=== PATIENT | male | born 1955 | race Caucasian/White ===

== ENCOUNTER 2020-05-09 02:20 | Outpatient (CLI) | payer MEDICARE, SELFPAY ==
[2020-05-09 19:47] LABS: SARS-CoV-2 RNA PCR Negative
== END 2020-05-09 02:21 | disposition home or self-care (01) ==
LOC: ANHCOVIDDT 02:22
PROVIDERS: PCP Family Medicine; Visit Provider Internal Medicine Gastroenterology
DX: Z01.818 Encounter for other preprocedural examination (principal); Z20.828 Contact with and (suspected) exposure to other viral communicable diseases
CPT/HCPCS: 87635; C9803; U0003

== ENCOUNTER 2020-05-12 04:47 | Day surgery (SDC) | payer MEDICARE, SELFPAY ==
[2020-05-08 14:28] VITALS: BMI 23.8
[2020-05-12 10:14] VITALS: BP 120/98; PULSE 97; RESP 16; O2SAT 100
[2020-05-12] MEDS: LACTATED RINGERS 1,000 ML 150 ML IV CONT (10:23)
--- NOTE | 2020-05-12 10:31 | WPDANESEPPF ---
Anes - Initial Pre Proc Eval Procedure: Operation Date: 05/12/20 11:15 Proposed Procedures p Esophagogastroduodenoscopy & Colonoscopy - Abad Porras MD Date/Time: 05/12/20 10:31 Surgeon: Abad Porras MD Pre Op Diagnosis: Abdominal Pain/ Weight Loss Patient Data Age: 64 Gender: M Height: 6 ft 2 in Weight: 74.2 kg Last Vital Signs Pulse 97 05/12/20 10:14 Resp 16 05/12/20 10:14 BP 120/98 H 05/12/20 10:14 Pulse Ox 100 05/12/20 10:14 Allergies Allergy/AdvReac Type Severity Reaction Status Date / Time Penicillins Allergy Unknown face Verified 05/12/20 10:10 breaks out Home Medications Medication Instructions Recorded Confirmed Type zolpidem 10 mg tablet 10 mg PO HS 02/07/20 05/08/20 History tramadol 50 mg tablet 50 mg PO BID PRN #60 tablet 02/22/20 05/08/20 Rx rosuvastatin 20 mg tablet 20 mg PO DAILY #90 tablet 03/13/20 05/08/20 Rx omeprazole 20 mg capsule,delayed 20 mg PO DAILY #30 cap 04/05/20 05/08/20 Rx release mirtazapine 15 mg tablet 15 mg PO DAILY #30 tablet 04/27/20 05/08/20 Rx budesonide-formoterol HFA 160 2 puff INHALATION Q12H #10.2 g 05/05/20 05/08/20 Rx mcg-4.5 mcg/actuation aerosol inhaler mirtazapine 7.5 mg PO DAILY 05/08/20 05/08/20 History sodium,potassium,mag sulfates 17.5 354 ml PO .COMPLEX #354 ml 05/08/20 05/08/20 Rx gram-3.13 gram-1.6 gram oral soln Patient hx anesthesia problems: none Family hx anesthesia problems: none PMFSH Past Medical History Medical History Arthritis COPD (chronic obstructive pulmonary disease) Dyspepsia Migraines Tobacco abuse Surgical History Surgical History H/O hemorrhoidectomy History of appendectomy Family History Family History Mother Diabetes mellitus Father Mesothelioma Sibling Liver disease Social History Social History Smoking packs per day: 1 Smoking cigarettes per day: 20.0 Years smoked: 50 Smoking pack-years: 50.00 Smoking status: Current every day smoker Tobacco type: cigarettes Alcohol intake: never Substance use: never Substance use type: does not use Living arrangements: with family Spiritual care concerns: No Anes - Eval Final PreProcedure Day of Procedure 05/12/20 10:31 Patient weight: normal Heart: regular rate and rhythm Lungs: decreased breath sounds Airway: Mallampati scale class II Neurological: alert and oriented Last oral intake: >/= 8 hours ASA classification: III Emergent: no Anesthesia type and monitoring: general GIVS and standard monitoring Informed Consent: The patient's anesthetic plan and its attendant risks and benefits were discussed with the patient/family/POA. Questions were solicited and answers provided to the satisfaction of the patient/family/POA.
--- NOTE | 2020-05-12 10:48 | PM.HPGS ---
History of Present Illness History of Present Illness Consent: Risks, benefits, and alternatives have been discussed and questions answered. Patient agrees to proceed with procedure. Chief complaint: Abdominal Pain/ Weight Loss Narrative: Pierre Alvarez is a 64 year old male with weight loss, upper abdominal pain, colonoscopy about 4 years ago. Also smoker, insurance did not approved CT scan that was ordered. Review of Systems Constitutional: Constitutional: Denies headache(s) and Denies weakness Eyes: Eyes: Denies blurry vision ENT: Reports Normal hearing present, Denies headache(s) and Denies neck pain Cardiovascular: Cardiovascular: Denies chest pain and Denies dyspnea Respiratory: Respiratory: Denies dyspnea Gastrointestinal: Gastrointestinal: Reports no additional gastrointestinal complaints Genitourinary: Genitourinary: Denies dysuria Musculoskeletal: Musculoskeletal: Denies neck pain Integumentary/Breasts: Skin/Breast: Denies dry skin Neurologic: Reports Normal hearing present, Denies headache(s) and Denies weakness Psychiatric: Psychiatric: Denies anxiety Endocrine: Endocrine: Denies change in body appearance Hematologic/Lymphatic: Hematologic/Lymphatic: Denies easy bleeding Allergic/Immunologic: Allergic/Immunologic: Denies urticaria PMFSH Past Medical History Medical History Arthritis COPD (chronic obstructive pulmonary disease) Dyspepsia Migraines Tobacco abuse Surgical History Surgical History H/O hemorrhoidectomy History of appendectomy Family History Family History Mother Diabetes mellitus Father Mesothelioma Sibling Liver disease Social History Social History Smoking packs per day: 1 Smoking cigarettes per day: 20.0 Years smoked: 50 Smoking pack-years: 50.00 Smoking status: Current every day smoker Tobacco type: cigarettes Alcohol intake: never Substance use: never Substance use type: does not use Living arrangements: with family Spiritual care concerns: No Meds Home Medications and Allergies Home Medications Medication Instructions Recorded Confirmed Type zolpidem 10 mg tablet 10 mg PO HS 02/07/20 05/08/20 History tramadol 50 mg tablet 50 mg PO BID PRN #60 tablet 02/22/20 05/08/20 Rx rosuvastatin 20 mg tablet 20 mg PO DAILY #90 tablet 03/13/20 05/08/20 Rx omeprazole 20 mg capsule,delayed 20 mg PO DAILY #30 cap 04/05/20 05/08/20 Rx release mirtazapine 15 mg tablet 15 mg PO DAILY #30 tablet 04/27/20 05/08/20 Rx budesonide-formoterol HFA 160 2 puff INHALATION Q12H #10.2 g 05/05/20 05/08/20 Rx mcg-4.5 mcg/actuation aerosol inhaler mirtazapine 7.5 mg PO DAILY 05/08/20 05/08/20 History sodium,potassium,mag sulfates 17.5 354 ml PO .COMPLEX #354 ml 05/08/20 05/08/20 Rx gram-3.13 gram-1.6 gram oral soln Allergies Allergy/AdvReac Type Severity Reaction Status Date / Time Penicillins Allergy Unknown face Verified 05/12/20 10:10 breaks out Vital Signs Vital Signs - 24 hr 05/12/20 10:14 Pulse Rate 97 Respiratory Rate 16 Blood Pressure 120/98 H Pulse Oximetry 100 Exam Const: General: comfortable and no acute distress HENMT: General nose exam: Normal nares present Eyes: General: appearance normal, both eyes and all related structures Neck: Neck: no JVD Resp: Auscultation: clear to auscultation bilaterally Cardio: Rate: regular rate Rhythm: regular rhythm GI: Inspection: non-distended GI Palp: Yes Soft to palpation Skin: General skin exam: normal color Neuro: General: gait normal Speech: normal speech Extrem: General: normal to inspection Psych: Mental Status: mental status grossly normal Assessment and Plan Assessment and plan (1) Weight loss: Code(s): R
[2020-05-12 11:35] VITALS: BP 89/54; PULSE 84; RESP 32; O2SAT 95
[2020-05-12 11:45] VITALS: BP 100/70; PULSE 74; RESP 21; O2SAT 98
== END 2020-05-12 12:11 | disposition home or self-care (01) ==
PROVIDERS: PCP Family Medicine; Visit Provider Internal Medicine Gastroenterology
PROC: 0DJ08ZZ Inspection of Upper Intestinal Tract, Via Natural or Artificial Opening Endoscopic (ICD-10-PCS; CPT 43235; principal; 2020-05-12 11:15)
DX: Z12.11 Encounter for screening for malignant neoplasm of colon (principal); D12.0 Benign neoplasm of cecum; D12.2 Benign neoplasm of ascending colon; D12.3 Benign neoplasm of transverse colon; K57.30 Diverticulosis of large intestine without perforation or abscess without bleeding; K64.8 Other hemorrhoids; K29.50 Unspecified chronic gastritis without bleeding; K21.00 Gastro-esophageal reflux disease with esophagitis, without bleeding; K44.9 Diaphragmatic hernia without obstruction or gangrene; K22.2 Esophageal obstruction; K26.9 Duodenal ulcer, unspecified as acute or chronic, without hemorrhage or perforation; J44.9 Chronic obstructive pulmonary disease, unspecified; F17.210 Nicotine dependence, cigarettes, uncomplicated
CPT/HCPCS: 45385; 43239; 87081; 88305; C9803; J2704; J7120; U0003

== ENCOUNTER 2020-08-20 13:25 | Emergency (ER) | payer MEDICARE, SELFPAY ==
[2020-08-20 13:40] VITALS: BP 150/62; PULSE 89; RESP 20; TEMP 36.6; O2SAT 98
[2020-08-20 13:59] LABS: Basophils Percent Auto 0.5 % (0.2-1.2); Eosinophils Absolute Auto 0.1 K/mm3 (0-0.3); Eosinophils Percent Auto 0.8 % (0-4.4); Hematocrit 44.8 % (42.0-52.0); Hemoglobin 15.1 g/dL (14.0-18.0); Immature Granulocyte Absolute 0.03 K/mm3 (0.00-0.031); Immature Granulocyte Percent A 0.4 % (0-0.5); Lymphocytes Absolute Auto 2.69 K/mm3 (0.9-3.2); Lymphocytes Percent Auto 31.8 % (18.3-44.2); Mean Corpuscular HGB Conc 33.7 g/dl (32-36); Mean Corpuscular Hemoglobin 30.6 pg (26-34); Mean Corpuscular Volume 90.7 fl (80-100); Mean Platelet Volume 9.7 fl (7.4-10.4); Monocytes Absolute Auto 0.7 K/mm3 (0.1-0.6); Monocytes Percent Auto 8.4 % (2.6-8.5); Neutrophils Absolute Auto 4.9 K/mm3 (1.3-6.7); Neutrophils Percent Auto 58.1 % (45.5-73.1); Platelet Count Result 338 k/mm3 (150-375); Red Blood Count 4.94 M/mm3 (4.6-6.20); Red Cell Distribution Width 13.7 % (11.5-14.5); White Blood Count 8.5 K/mm3 (4.5-10.0)
[2020-08-20 14:07] LABS: Add Urine Microscopic? YES; Appearance Urine Clear (Clear); Bilirubin Urine Negative (Negative); Blood Urine Negative (Negative); Color Urine Yellow (Yellow); Glucose Urine UA Negative (Negative); Ketones Urine Trace mg/dL (Negative); Leukocyte Esterase Ur Trace LEU/UL (Negative); Mucus Urine Few /lpf; Nitrate Urine Negative (Negative); Protein Urine 1+ mg/dL (Negative); Specific Grav Ur 1.029 (1.001-1.035)
[2020-08-20 14:17] LABS: Alanine Aminotransferase 12 U/L (4-50); Albumin Level 4.4 g/dL (3.5-5.1); Alkaline Phosphatase 74 U/L (38-126); Anion Gap 9 mmol/L (8-16); Aspartate Amino Transferase 20 U/L (17-59); Bilirubin,Total 0.5 mg/dL (0.2-1.3); Blood Urea Nitrogen 13 mg/dL (9-20); Calcium 9.4 mg/dL (8.4-10.2); Carbon Dioxide 27 mmol/L (22-30); Chloride 104 mmol/L (98-107); Estimated CRCL calculation 68 ml/min; Estimated Glomerular Filt Rate > 60; Glucose 99 mg/dL (75-110); Lipase 34 U/L (23-300); Potassium 4.1 mmol/L (3.4-5.0); Sodium 140 mmol/L (137-145)
--- NOTE | 2020-08-20 14:35 | ED.ABDPAIN ---
HPI - Abdominal Pain General Chief Complaint: Abdominal Pain Stated Complaint: abd pain Time Seen by Provider: 08/20/20 14:21 History of Present Illness HPI narrative: Constant epigastric pain for 7 months. Had upper endoscopy and dilation 3 months ago, which he believes made the pain worse. He has been on esomeprazole for years and feels that this may be making the pain worse. He reports 50 pound weight loss due to pain with eating. No nausea, vomiting, diarrhea, fever. Related Data Allergies Allergy/AdvReac Type Severity Reaction Status Date / Time Penicillins Allergy Unknown face Verified 08/20/20 13:42 breaks out Review of Systems Review of Systems: All systems reviewed & are unremarkable except as noted in HPI and below Constitutional: Constitutional: Denies chills and Denies fever(s) Eyes: Eyes: Reports no additional eye complaints ENT: Reports system reviewed and no additional complaints, except as documented Cardiovascular: Cardiovascular: Denies chest pain Respiratory: Respiratory: Reports dyspnea Gastrointestinal: Gastrointestinal: Reports abdominal pain, Denies constipation, Denies diarrhea, Denies nausea and Denies vomiting Genitourinary: Genitourinary: Denies hematuria and Denies dysuria Musculoskeletal: Musculoskeletal: Denies back pain Neurologic: Denies numbness and Denies weakness PMFSH Past Medical History Medical History Arthritis COPD (chronic obstructive pulmonary disease) Dyspepsia Migraines Tobacco abuse Surgical History Surgical History H/O hemorrhoidectomy History of appendectomy Family History Family History Mother Diabetes mellitus Father Mesothelioma Sibling Liver disease Social History Social History Smoking packs per day: 1 Smoking cigarettes per day: 20.0 Years smoked: 50 Smoking pack-years: 50.00 Smoking status: Current every day smoker Tobacco type: cigarettes Alcohol intake: never Substance use: never Substance use type: does not use Spiritual care concerns: No Exam Const: General: no acute distress and alert Nutritional Appearance: thin Orientation/consciousness: patient oriented x3 HENMT: Head: normal to inspection Neck: Neck: normal visual inspection Chest: Chest palpation & inspection: normal inspection of the chest and no tenderness Resp: Effort & Inspection: normal respiratory effort Auscultation: clear to auscultation bilaterally Cardio: Rate: regular rate Rhythm: regular rhythm GI: Inspection: non-distended GI Palp: Yes Soft to palpation, Yes Tenderness to palpation present (GI) (epigastric), No Guarding due to palpation present (GI) and No Rebound tenderness present Skin: General skin exam: normal color Neuro: General: patient oriented x3, moves all extremities, no focal motor deficits and CN's II-XI intact bilaterally Speech: normal speech Gait exam (Neuro): Normal gait present Extrem: General: normal to inspection Course Vital Signs Vital signs: Vital Signs Temperature 36.6 C 08/20/20 13:40 Pulse Rate 89 08/20/20 13:40 Respiratory Rate 20 08/20/20 13:40 Blood Pressure 150/62 H 08/20/20 13:40 Pulse Oximetry 98 08/20/20 13:40 Temperature 36.6 C 08/20/20 13:40 Pulse Rate 89 08/20/20 13:40 Respiratory Rate 20 08/20/20 13:40 Blood Pressure 150/62 H 08/20/20 13:40 Pulse Oximetry 98 08/20/20 13:40 MDM - Abdominal Pain MDM Narrative Medical decision making narrative: Improved instantly with lidocaine. I will provide a short prescription until he can follow-up with [facility]. Case discussed with Dr. Barragan. I will change his PPI and start carafate. Differential Diagnosis Differential diagnosis: Likely other (PUD, GERD, hiatal hernia) Medic
[2020-08-20] MEDS: BELLADONNA ALK/PHENOB ELIX 10 ML, MAG HYDROX/ALUMINUM HYD/SIMETH 30 ML, LIDOCAINE HCL 2... PO (14:41)
[2020-08-20] MEDS: SUCRALFATE SUSP 100 MG/ML 10 ML UDC 1000 MG PO (15:10)
== END 2020-08-20 15:18 | disposition home or self-care (01) ==
PROVIDERS: Emergency Provider Emergency Medicine; PCP Family Medicine
DX: R10.13 Epigastric pain (principal); G89.29 Other chronic pain; M19.90 Unspecified osteoarthritis, unspecified site; J44.9 Chronic obstructive pulmonary disease, unspecified; F17.210 Nicotine dependence, cigarettes, uncomplicated
CPT/HCPCS: 36415; 80053; 81001; 83690; 85025; 87086; 87088; 99283; A9270

== ENCOUNTER 2020-08-24 10:01 | Emergency (ER) | payer MEDICARE, SELFPAY ==
--- NOTE | ~2020-08-24 | XR_ITS ---
EXAMINATION: XR UGI w esoph water soluble EXAM DATE: 08/24/2020 13:27 INDICATION: Epigastric pain for 3 months. TECHNIQUE: Limited water-soluble esophagram with upper GI examination performed in standing position according to patient's ability/desire. Dose reduction digital pulsed fluoroscopy was used at 4 frame s per second with DAP 1.4 Gycm2. Correlation is made to CT abdomen pelvis earlier same date. FINDINGS: There is mild presbyesophagus without esophageal stricture or diverticulum. No aspiration was demonstrated during the examination. The stomach had a normal rugal fold pattern as to the duoden al bulb and sweep, no focal ulceration was identified. There was moderate amount of reflux and straig ht during the examination even in the standing position. IMPRESSION: 1. Moderate gastroesophageal reflux. 2. Mild presbyesophagus. Reviewed, dictated and finalized at location A. ERCIAL REAL ESTATE MANAGER
--- NOTE | ~2020-08-24 | CT_ITS ---
EXAMINATION: CT abdomen pelvis w con DATE: 08/24/2020 11:37 INDICATION: Duodenal ulcer TECHNIQUE: Computed tomography (CT) of the abdomen and pelvis was performed with 100 mL Omnipaque-350 intravenous contrast. Automated exposure control and iterative reconstruction technique were employe d. The dose-length product was 318.45 mGy-cm. COMPARISON: None FINDINGS: 8 mm calcified pleural based nodule in the left lower lobe consistent with old granulomatous disease. Couple additional 4 mm noncalcified pleural-based nodules in the left lower and right middle lobes. Mild bronchiectasis in the bilateral lower lobes. Also in the bilateral lower lung zones are fine per ipheral reticular opacities which could represent nonspecific chronic interstitial lung disease, atel ectasis or less likely mild pulmonary edema. Heart size is normal. No pericardial or pleural effusion . Liver, gallbladder, pancreas, spleen and bilateral adrenal glands are normal. Small bilateral renal c ysts measuring up to 10 mm. Small bowel including the visualized duodenum is unremarkable. Moderate a mount of stool scattered throughout the colon. No bowel obstruction. The appendix is not visualized. No pericecal inflammatory change to suggest acute appendicitis. Diffuse mild bladder wall thickening which could be due to incomplete distention and/or chronic outlet obstruction from the enlarged prost ate. No free intraperitoneal gas or fluid. No pathologically enlarged abdominal or pelvic lymphadenop athy. There is calcified atherosclerosis of the aorta and many of the other arteries. Mild scattered degenerative skeletal changes. IMPRESSION: 1. No acute intra-abdominal/pelvic process. Specifically the duodenum appears normal. 2. Bronchiectasis and mild peripheral reticular opacities at the bilateral lung bases suggesting nons pecific chronic interstitial lung disease. 3. Diffuse mild wall thickening of the bladder most likely related to either incomplete distention or chronic outlet obstruction from the enlarged prostate. Correlate with urinalysis to exclude cystitis . Reviewed, dictated and finalized at location B. EATION ATTENDANT IMPRESSION: 1. No acute intra-abdominal/pelvic process. Specifically the duodenum appears n ormal. 2. Bronchiectasis and mild peripheral reticular opacities at the bilateral lung bases suggesting nonspecific chronic interstitial lung disease. 3. Diffuse mild wall thickening of the bladder most likely related to either in complete distention or chronic outlet obstruction from the enlarged prostate. C orrelate with urinalysis to exclude cystitis.
[2020-08-24 10:03] VITALS: BP 141/93; PULSE 70; RESP 16; TEMP 36.8; O2SAT 100
--- NOTE | 2020-08-24 10:11 | ECG_ITS ---
Measurements Intervals [place] Rate: 57 P: 71 [place]: 140 QRS: 61 QRSD: 89 T: 51 QT: 424 QTc: 413 Interpretive Statements SINUS BRADYCARDIA CANNOT RULE OUT SEPTAL INFARCT, AGE INDETERMINATE ABNORMAL ECG Electronically Signed On 08-24-2020 10:32:54 MACHINE CEMENTER AND FOLDER by Bennett Schmitz D.O.
[2020-08-24 10:56] LABS: Basophils Percent Auto 0.2 % (0.2-1.2); Eosinophils Absolute Auto 0.1 K/mm3 (0-0.3); Eosinophils Percent Auto 1.2 % (0-4.4); Hematocrit 45.3 % (42.0-52.0); Hemoglobin 15.2 g/dL (14.0-18.0); Immature Granulocyte Absolute 0.02 K/mm3 (0.00-0.031); Immature Granulocyte Percent A 0.2 % (0-0.5); Lymphocytes Absolute Auto 2.56 K/mm3 (0.9-3.2); Lymphocytes Percent Auto 30.8 % (18.3-44.2); Mean Corpuscular HGB Conc 33.6 g/dl (32-36); Mean Corpuscular Hemoglobin 30.5 pg (26-34); Mean Corpuscular Volume 90.8 fl (80-100); Mean Platelet Volume 9.7 fl (7.4-10.4); Monocytes Absolute Auto 0.5 K/mm3 (0.1-0.6); Monocytes Percent Auto 6.3 % (2.6-8.5); Neutrophils Absolute Auto 5.1 K/mm3 (1.3-6.7); Neutrophils Percent Auto 61.3 % (45.5-73.1); Platelet Count Result 299 k/mm3 (150-375); Red Blood Count 4.99 M/mm3 (4.6-6.20); Red Cell Distribution Width 13.4 % (11.5-14.5); White Blood Count 8.3 K/mm3 (4.5-10.0)
[2020-08-24 10:59] LABS: Add Urine Microscopic? YES; Appearance Urine Clear (Clear); Bilirubin Urine Negative (Negative); Blood Urine 1+ (Negative); Color Urine Yellow (Yellow); Glucose Urine UA Negative (Negative); Ketones Urine 1+ mg/dL (Negative); Leukocyte Esterase Ur Negative LEU/UL (Negative); Mucus Urine Rare /lpf; Nitrate Urine Negative (Negative); Protein Urine Negative (Negative); Specific Grav Ur 1.013 (1.001-1.035); Urobilinogen Urine Negative mg/dL (<2.0); WBC Urine 0-3 /hpf
[2020-08-24 11:06] LABS: Prothrombin Time 13.7 Seconds (11.1-14.7)
[2020-08-24 11:07] LABS: Partial Thromboplastin Time 29.6 SECONDS (22.3-36.8)
[2020-08-24 11:09] LABS: Lactic Acid Reflex 1.3 mmol/L (0.7-2.1)
[2020-08-24 11:10] LABS: Alanine Aminotransferase 12 U/L (4-50); Albumin Level 4.2 g/dL (3.5-5.1); Alkaline Phosphatase 71 U/L (38-126); Anion Gap 7 mmol/L (8-16); Aspartate Amino Transferase 20 U/L (17-59); Bilirubin,Total 0.6 mg/dL (0.2-1.3); Blood Urea Nitrogen 12 mg/dL (9-20); Calcium 9.1 mg/dL (8.4-10.2); Carbon Dioxide 27 mmol/L (22-30); Chloride 102 mmol/L (98-107); Estimated CRCL calculation 62 ml/min; Estimated Glomerular Filt Rate > 60; Glucose 103 mg/dL (75-110); Potassium 4.1 mmol/L (3.4-5.0); Sodium 136 mmol/L (137-145)
[2020-08-24] MEDS: SODIUM CHLORIDE 0.9% IV 1,000 ML 999 ML IV CONT (11:13)
[2020-08-24] MEDS: PANTOPRAZOLE SODIUM IV 40 MG VIAL 80 MG IV PUSH (11:14)
[2020-08-24 11:21] LABS: Troponin I < 0.012 ng/mL (0.000-0.034)
--- NOTE | 2020-08-24 11:21 | ED.GENADULT ---
HPI - General Adult General Chief complaint: Abdominal Pain Stated complaint: ABD PAIN Time Seen by Provider: 08/24/20 10:11 Source: patient, family, EMS and old records reviewed Mode of arrival: EMS Limitations: no limitations History of Present Illness HPI narrative: Patient is a 65-year-old male who presents with severe burning in the epigastrium that has been present for several months patient was here on Friday had evaluation had improvement with viscous lidocaine had improvement for 1 day and then had worsening of symptoms. Patient notes he had in the past by Dr. Barragan upper endoscopic which revealed a duodenal ulcer and colon polyps. Patient is scheduled to have a CAT scan of the abdomen pelvis today ordered by primary care. Patient denies any fever chills nausea vomiting diarrhea melena or rectal bleeding on arrival patient appears anxious and uncomfortable Related Data Allergies Allergy/AdvReac Type Severity Reaction Status Date / Time Penicillins Allergy Unknown face Verified 08/20/20 13:42 breaks out Review of Systems Review of Systems: All systems reviewed & are unremarkable except as noted in HPI and below PMFSH Past Medical History Medical History Arthritis COPD (chronic obstructive pulmonary disease) Dyspepsia Migraines Tobacco abuse Surgical History Surgical History H/O hemorrhoidectomy History of appendectomy Family History Family History Mother Diabetes mellitus Father Mesothelioma Sibling Liver disease Social History Social History Smoking packs per day: 1 Smoking cigarettes per day: 20.0 Years smoked: 50 Smoking pack-years: 50.00 Smoking status: Current every day smoker Tobacco type: cigarettes Alcohol intake: never Substance use: never Substance use type: does not use Spiritual care concerns: No Exam Narrative: Exam Narrative: GENERAL: Well-appearing, well-nourished, and in no acute distress. HEAD: Normocephalic, atraumatic. EYES: PERRLA and EOMI. ENT: Nares clear, no rhinorrhea or epistaxis. Mucous membranes moist. CHEST: Clear to auscultation. No respiratory distress. No wheezes rales or rhonchi HEART: Regular rate and rhythm. No murmur heard. Normal peripheral pulses. ABDOMEN: Soft, epigastric tenderness with voluntary guarding, nondistended EXTREMITIES: Normal range of motion. No edema. SKIN: Warm, dry, no rash. NEURO: No focal deficits. Alert and oriented x3. Cranial nerves II through XII grossly intact. PSYCH: Normal mood and affect. Course Consultations Consultation #1: Discussed case with patient's wine and spirits clerk Dr. Barragan who is scheduled to see the patient tomorrow and would like the patient to continue therapies and to see him in clinic tomorrow Case discussed in entirety with gastroenterology Date: 08/24/20 Time: 13:36 Vital Signs Vital signs: Vital Signs Temperature 98.2 F 08/24/20 10:03 Pulse Rate 70 08/24/20 10:03 Respiratory Rate 16 08/24/20 10:03 Blood Pressure 141/93 H 08/24/20 10:03 Pulse Oximetry 100 08/24/20 10:03 Temperature 98.2 F 08/24/20 10:03 Pulse Rate 78 08/24/20 12:43 Respiratory Rate 18 08/24/20 12:43 Blood Pressure 138/72 08/24/20 12:43 Pulse Oximetry 99 08/24/20 12:43 Medical Decision Making MDM Narrative Medical decision making narrative: Patient in the room presents with ongoing epigastric pain which has been present for 7 months or more has seen gastroenterology had upper and lower endoscopic patient was seen in the emergency department earlier this week and again today had CAT scan imaging and blood work which were unremarkable for any acute abnormalities. Swallow study does show moderate reflux potentially exacerbating and causing the s
[2020-08-24 12:43] VITALS: BP 138/72; PULSE 78; RESP 18; O2SAT 99
[2020-08-24] MEDS: LORazepam INJ (*CRX) 2 MG/ML VIAL 1 MG IV PUSH (14:01)
[2020-08-24] MEDS: LIDOCAINE HCL 2% VISC SOLN 15 ML UDC 20 ML PO (14:56)
[2020-08-24] MEDS: MAG HYDROX/AL HYDROX/SIMETH 30 ML UDC PO (14:56)
[2020-08-24] MEDS: MORPHINE SULFATE (*CRX) 4 MG/ML INJ IV PUSH (14:57)
[2020-08-24 14:59] VITALS: BP 142/78; PULSE 78; RESP 18; O2SAT 99
== END 2020-08-24 15:00 | disposition home or self-care (01) ==
PROVIDERS: Emergency Medicine Emergency Medical Services; Emergency Provider Emergency Medicine; PCP Family Medicine
DX: R10.13 Epigastric pain (principal); M19.90 Unspecified osteoarthritis, unspecified site; J44.9 Chronic obstructive pulmonary disease, unspecified; F17.210 Nicotine dependence, cigarettes, uncomplicated; R00.1 Bradycardia, unspecified; R94.31 Abnormal electrocardiogram [ECG] [EKG]; K21.9 Gastro-esophageal reflux disease without esophagitis; K22.8 Other specified diseases of esophagus
CPT/HCPCS: 36415; 74177; 74240; 80053; 81001; 83605; 84484; 85025; 85610; 85730; 93005; 96365; 96375; 99284; A9270; C9113; J0131; J2060; J2270; J7030; Q9967

== ENCOUNTER 2024-12-19 16:54 | Emergency (ER) | payer MEDICARE, SELFPAY ==
--- NOTE | ~2024-12-19 | CT_ITS ---
EXAMINATION: CT brain wo con DATE: 12/19/2024 17:31 INDICATION: headache and HTN x 4 hours . TECHNIQUE: Computed tomography (CT) of the head was performed without intravenous contrast. The mA wa s adjusted according to patient size. Iterative reconstruction technique was employed. The dose-lengt h product was 681.00 mGy-cm. COMPARISON: None. FINDINGS: No acute intracranial hemorrhage or extra-axial fluid collection. No hydrocephalus, mass, or herniation. No acute ischemic infarct. Unremarkable dural venous sinus attenuation. No acute osseous abnormality. The aerated spaces are clear. IMPRESSION: No acute intracranial process. Reviewed, dictated and finalized at location K.
--- NOTE | ~2024-12-19 | XR_ITS ---
EXAMINATION: XR chest 1V portable Exam Date/Time: 12/19/2024 17:30 CDT HISTORY: HTN Comparison: CT abdomen pelvis 08/24/2020. RESULT: Lines, tubes, and devices: None. Lungs and pleura: Mild peripheral reticular opacities. No focal consolidation, pleural effusion, or pneumothorax. Cardiomediastinal silhouette: Stable. Other: No acute osseous or upper abdominal finding. IMPRESSION: No acute cardiopulmonary process. Chronic interstitial lung disease. Reviewed, dictated and finalized at location K.
[2024-12-19 16:56] VITALS: BP 194/94; PULSE 62; RESP 18; O2SAT 100
--- NOTE | 2024-12-19 17:15 | ECG_ITS ---
Test Date: 2024-12-19 17:43:49 Measurements Intervals [place] Rate: 57 P: 31 [place]: 154 QRS: -8 QRSD: 89 T: 19 QT: 456 QTc: 445 Interpretive Statements SINUS BRADYCARDIA WITH OCCASIONAL VENTRICULAR PREMATURE COMPLEXES BASELINE ARTIFACT- I, II, AVR, AVL, AVF BORDERLINE ECG No previous ECG available for comparison Electronically Signed On 12-19-2024 19:52:36 CDT by Bennett Schmitz D.O.
[2024-12-19] MEDS: SODIUM CHLORIDE 0.9% IV 1,000 ML 999 ML IV CONT (17:50)
[2024-12-19] MEDS: MAGNESIUM SULF 2 GM/WATER 50ML 2 GM/50 ML BAG IVPB (17:51)
[2024-12-19] MEDS: PROCHLORPERAZINE EDISYLATE 10 MG/2 ML VIAL IV PUSH (17:53)
[2024-12-19] MEDS: diphenhydrAMINE HCl INJ 50 MG/ML VIAL 25 MG IV PUSH (17:53)
[2024-12-19] MEDS: dexAMETHasone SOD PHOS INJ 10 MG/ML 1 ML VIAL IV PUSH (17:53)
--- NOTE | 2024-12-19 17:56 | ED_ITS ---
HPI - Recheck/Abnormal Lab/Rx General Chief Complaint: Recheck/Abnormal Lab/Rx Stated Complaint: htn and headache Time Seen by Provider: 12/19/24 16:58 History of Present Illness HPI narrative: 69-year-old male with a past medical history including hypertension and migraine headaches. He takes rizatriptan whenever he gets a migraine headache and usually is preceded by aura in his vision. Today at approximately 2:30 p.m. he started getting a visual or and knows that he was getting a migraine with an aura while he was cooking lunch. Not doing anything strenuous or exertional but states that the pain got worse over the last several hours despite taking rizatriptan. He knows that his blood pressure started to become elevated at home on his blood pressure cuff and he was concerned so he called the ambulance. He took 5 mg of lisinopril at home to try and combat his blood pressure elevation. He states that the headache is the worst headache he has experienced but feels very similar to his migraine quality and location which is usually localized behind his eyes and towards the right side. Denies any trauma or injury, no loss of consciousness, chest pain, shortness a breath no abdominal pain, fever, chills. No neck pain or stiffness. No neurological deficits or complaints such as paresthesias or weakness/gait abnormality or ataxia. Related Data Home Medications ?Medication ?Instructions ?Recorded ?Confirmed ?Last Taken ?Type hyoscyamine sulfate 0.125 mg 0.125 mg PO BID 09/07/20 09/07/20 Unknown History tablet (Levsin) gabapentin 300 mg capsule 900 mg PO DAILY PRN 09/08/20 Unknown History lorazepam 1 mg tablet 0.5 mg PO Q8H PRN 09/08/20 Unknown History Allergies Allergy/AdvReac Type Severity Reaction Status Date / Time Penicillins Allergy Unknown face Verified 09/21/20 10:27 breaks out Review of Systems 2 Review of Systems: As reviewed above in HPI [facility] Past Medical History Medical History Dyspepsia Tobacco abuse Arthritis Migraines COPD (chronic obstructive pulmonary disease) Surgical History Surgical History H/O hemorrhoidectomy History of appendectomy Family History Family History Mother Diabetes mellitus Father Mesothelioma Sibling Liver disease Social History Social History Smoking packs per day: 0.5 Smoking cigarettes per day: 10.0 Years smoked: 50 Smoking pack-years: 25.00 Smoking status: Current every day smoker Tobacco type: cigarettes Alcohol intake: never Substance use: never Substance use type: does not use Living arrangements: with family Spiritual care concerns: No Exam 2 Narrative: GENERAL: [Well-appearing, well-nourished, and in no acute distress.] HEAD: [Normocephalic, atraumatic.] EYES: [PERRLA and EOMI.] ENT: Nares clear, no rhinorrhea or epistaxis. Mucous membranes moist. NECK: Supple. CHEST: [Clear to auscultation. No respiratory distress.] HEART: [Regular rate and rhythm]. No murmur heard. [Normal peripheral pulses.] ABDOMEN: [Soft, nondistended], [nontender], [No rigidity or guarding] EXTREMITIES: Normal range of motion. [No edema.] SKIN: Warm, dry, no rash. NEURO: [No focal deficits]. Alert and oriented [x3.] PSYCH: [Normal mood and affect.] Course Vital Signs Vital signs: Vital Signs Pulse Rate 62 12/19/24 16:56 Respiratory Rate 18 12/19/24 16:56 Blood Pressure 194/94 H 12/19/24 16:56 Pulse Oximetry 100 12/19/24 16:56 Oxygen Delivery Room Air 12/19/24 16:56 Pulse Rate 62 12/19/24 16:56 Respiratory Rate 18 12/19/24 16:56 Blood Pressure 194/94 H 12/19/24 16:56 Pulse Oximetry 100 12/19/24 16:56 Oxygen Delivery Room Air 12/19/24 16:56 MDM - Recheck/Abnormal Lab/Rx MDM Narrative Medical decision making narrative: 69-year-old male with a past medical history including hypertension and migraine headaches. He takes rizatriptan whenever he gets a migraine headache and usually is preceded by aura in his vision. Today at approximately 2:30 p.m. he started getting a visual or and knows that he was getting a migraine with an aura while he was cooking lunch. Not doing anything strenuous or exertional but states that the pain got worse over the last several hours despite taking rizatriptan. He knows that his blood pressure started to become elevated at home on his blood pressure cuff and he was concerned so he called the ambulance. He took 5 mg of lisinopril at home to try and combat his blood pressure elevation. He states that the headache is the worst headache he has experienced but feels very similar to his migraine quality and location which is usually localized behind his eyes and towards the right side. Denies any trauma or injury, no loss of consciousness, chest pain, shortness a breath no abdominal pain, fever, chills. No neck pain or stiffness. No neurological deficits or complaints such as paresthesias or weakness/gait abnormality or ataxia. Given that patient has a history of migraine headaches this very much sounds like a migraine to him but he does states that this is the worst headache he has ever had which raises suspicion for another intracranial pathology such as a subarachnoid hemorrhage. His blood pressure being on the elevated side could be and most likely is secondary to pain however could also be causing his headache related to a SAH but less likely. He is within appropriate window for very high sensitivity and specificity testing including a noncontrast CT of the head to rule this out. This was ordered as well as laboratory assessments chest x-ray and EKG. He was given a migraine cocktail including fluids, Compazine, diphenhydramine, Decadron and magnesium. Placed on in home baby sitter and re- evaluated. Patient re-evaluated had complete symptomatic resolution at this time is blood pressure came back slightly lower which is reassuring. CT of the head was unremarkable, laboratory studies reassuring. Given his improvement and lack of any acute findings on workup he can be safely discharged with regular primary care provider follow-up and patient was comfortable with this plan and discharged. Medical Records Attestation: I reviewed the patient's medical records. Lab Data Attestation: I reviewed the patient's lab results. 12/19/24 18:02 12/19/24 18:02 Labs: Lab Results 12/19/24 Range/Units 18:02 WBC 8.1 (4.5-10.0) K/mm3 RBC 4.28 L (4.6-6.20) M/mm3 Hgb 12.5 L (14.0-18.0) g/dL Hct 38.7 L (42.0-52.0) % MCV 90.4 (80-100) fl MCH 29.2 (26-34) pg MCHC 32.3 (32-36) g/dl RDW 13.8 (11.5-14.5) % Plt Count 281 (150-375) k/mm3 MPV 9.8 (7.4-10.4) fl Immature Gran % (Auto) 0.4 (0-0.5) % Neut % (Auto) 46.9 (45.5-73.1) % Lymph % (Auto) 40.6 (18.3-44.2) % [place] % (Auto) 10.4 H (2.6-8.5) % Eos % (Auto) 1.2 (0-4.4) % Baso % (Auto) 0.5 (0.2-1.2) % Lymph # (Auto) 3.27 H (0.9-3.2) K/mm3 [place] # (Auto) 0.8 H (0.1-0.6) K/mm3 Eos # (Auto) 0.1 (0-0.3) K/mm3 Baso # (Auto) 0.0 (0.0-0.1) K/mm3 Abs Immat Gran (auto) 0.03 (0.00-0.031) K/mm3 Absolute Neuts (auto) 3.8 (1.3-6.7) K/mm3 Absolute Nucleated RBC 0.000 (0.0-0.012) K/mm3 Nucleated RBC % 0.0 (0.0-0.2) % Sodium 139 (137-145) mmol/L Potassium 3.6 (3.4-5.0) mmol/L Chloride 102 (98-107) mmol/L Carbon Dioxide 28 (22-30) mmol/L Anion Gap 9 (4-12) mmol/L BUN 9 (9-20) mg/dL Creatinine 1.04 (0.7-1.3) mg/dL Estim Creat Clear Calc 59 ml/min Estimated GFR > 60 (59 - ) Glucose 90 (65-110) mg/dL Calcium 9.3 (8.4-10.2) mg/dL Magnesium 2.2 (1.6-2.3) mg/dL Total Bilirubin 0.5 (0.2-1.3) mg/dL AST 24 (17-59) U/L ALT 15 (6-50) U/L Alkaline Phosphatase 89 (38-126) U/L Total Protein 7.8 (6.3-8.2) g/dL Albumin 4.2 (3.5-5.1) g/dL Imaging Data Attestation: I personally reviewed and interpreted this imaging study as follows: My impression: Impressions Head CT 12/19/24 17:34 IMPRESSION: No acute intracranial process. Chest X-Ray 12/19/24 17:38 IMPRESSION: No acute cardiopulmonary process. Chronic interstitial lung disease. Discharge Plan Discharge Clinical Impression: Migraine headache, Asymptomatic hypertension Patient Disposition: Home Condition: Stable Instructions: Antibiotic Form, Migraine Headache (ED) Additional Instructions: Your laboratory studies, imaging and CT scan were all reassuring without any acute findings or concerns. We treated your migraine headache here with improvement in symptoms. Follow-up with regular doctor and return with any emergent concerns. Patient Language: Spanish Prescriptions: No Action Lidocaine Viscous 2 % solution 1 applic mucous membrane QID PRN (Reason: pain) Qty: 600 0RF hyoscyamine sulfate [Levsin] 0.125 mg tablet 0.125 mg PO BID budesonide-formoterol [Symbicort] 160-4.5 mcg/actuation HFA aerosol inhaler 2 puff INHALATION Q12H Qty: 10.2 0RF lorazepam 1 mg tablet 0.5 mg PO Q8H PRN gabapentin 300 mg capsule 900 mg PO DAILY PRN doxepin 10 mg capsule 10 mg PO QHS PRN (Reason: insomnia) Qty: 14 0RF pantoprazole 40 mg tablet,delayed release (DR/EC) See Rx Instructions .ROUTE .COMPLEX Qty: 60 2RF Dose Instruction: Take 1 tablet by mouth twice daily Rx Instructions: Take 1 tablet by mouth twice daily mirtazapine 15 mg tablet 15 mg PO BID Qty: 60 2RF tramadol 50 mg tablet 50 mg PO TID PRN (Reason: pain) Qty: 90 2RF Follow-up/Referrals: PHYSICIAN,PROJECT STRUCTURAL ENGINEER [Primary Care Provider] - Time of Disposition: 19:33
[2024-12-19 18:11] LABS: Basophils Percent Auto 0.5 % (0.2-1.2); Eosinophils Absolute Auto 0.1 K/mm3 (0-0.3); Eosinophils Percent Auto 1.2 % (0-4.4); Hematocrit 38.7 % (42.0-52.0); Hemoglobin 12.5 g/dL (14.0-18.0); Immature Granulocyte Absolute 0.03 K/mm3 (0.00-0.031); Immature Granulocyte Percent A 0.4 % (0-0.5); Lymphocytes Absolute Auto 3.27 K/mm3 (0.9-3.2); Lymphocytes Percent Auto 40.6 % (18.3-44.2); Mean Corpuscular HGB Conc 32.3 g/dl (32-36); Mean Corpuscular Hemoglobin 29.2 pg (26-34); Mean Corpuscular Volume 90.4 fl (80-100); Mean Platelet Volume 9.8 fl (7.4-10.4); Monocytes Absolute Auto 0.8 K/mm3 (0.1-0.6); Monocytes Percent Auto 10.4 % (2.6-8.5); Neutrophils Absolute Auto 3.8 K/mm3 (1.3-6.7); Neutrophils Percent Auto 46.9 % (45.5-73.1); Platelet Count Result 281 k/mm3 (150-375); Red Blood Count 4.28 M/mm3 (4.6-6.20); Red Cell Distribution Width 13.8 % (11.5-14.5); White Blood Count 8.1 K/mm3 (4.5-10.0)
[2024-12-19 18:26] LABS: Magnesium 2.2 mg/dL (1.6-2.3)
[2024-12-19 18:27] LABS: Alanine Aminotransferase 15 U/L (6-50); Albumin Level 4.2 g/dL (3.5-5.1); Alkaline Phosphatase 89 U/L (38-126); Anion Gap 9 mmol/L (4-12); Aspartate Amino Transferase 24 U/L (17-59); Bilirubin,Total 0.5 mg/dL (0.2-1.3); Blood Urea Nitrogen 9 mg/dL (9-20); Calcium 9.3 mg/dL (8.4-10.2); Carbon Dioxide 28 mmol/L (22-30); Chloride 102 mmol/L (98-107); Estimated CRCL calculation 59 ml/min; Estimated Glomerular Filt Rate > 60; Glucose 90 mg/dL (65-110); Potassium 3.6 mmol/L (3.4-5.0); Sodium 139 mmol/L (137-145); Total Protein 7.8 g/dL (6.3-8.2)
== END 2024-12-19 19:45 | disposition home or self-care (01) ==
PROVIDERS: Emergency Provider Student in an Organized Health Care Education/Training Program
DX: G43.909 Migraine, unspecified, not intractable, without status migrainosus (principal); I10 Essential (primary) hypertension; J44.9 Chronic obstructive pulmonary disease, unspecified; M19.90 Unspecified osteoarthritis, unspecified site; F17.210 Nicotine dependence, cigarettes, uncomplicated; R00.1 Bradycardia, unspecified; I49.3 Ventricular premature depolarization
CPT/HCPCS: 36415; 70450; 71045; 80053; 83735; 85025; 93005; 96361; 96374; 96375; 99284; J0780; J1100; J1200; J3475; J7030

== ENCOUNTER 2025-02-28 16:50 | Outpatient (CLI) | payer MEDICARE, SELFPAY ==
--- OUTSIDE RECORDS SUMMARY | 2017-12-09 10:15 | XMS_ITS | Continuity of Care Document ---
Author Organization [facility] Address [address] [place] [address] [place] [address] Phone Care Team Providers Care Client Operations Manager Name Role Phone Guerrero Carvajal MD Unavailable Unavailable Allergies, Adverse Reactions, Alerts Substance Reaction Status Criticality No Known Allergies Active No Inform ation Medications Medication Instructions Dosage Effective Dates (start - stop) Status Comments zolpidem 5 mg tablet take 1 tablet by or al route every day at bedtime 5 MG - Active atorvastatin 20 mg tablet take 1 tablet by oral route every day 20 MG - Active citalopram 10 mg tablet take 1 tablet by oral route every day 10 MG - Active Ventolin HFA 90 mcg/actuation aerosol inhaler inhale 2 puff by inhalation route every 4 - 6 hours as needed - Active tramadol 50 mg tablet take 1 tablet by o ral route every 6 hours as needed 50 MG - Active Vitamin D3 2,000 unit tablet - Active Procedures Procedure Date Office/outpatient Visit, Est No Charge GDX Retina Eye Exam, New Patient Advance Directives Directive Yes / No Effective Date File Name No Information Encounters Encounter Description Practice Location Reason(s) For Visit Diagnoses Date Provider Providers Copied on Encounter Office/outpa tient Visit, Est [facility], [address] [place] [address] [address], [place], [place], [id number], [place] tel:[phone] SEC Christian ARAUJO Professional 1 month PVD follow up (chief complaint) PVD (posterior vitreous detachment), right eye 8 Wei Masters. [address] [facility], [address], [place], [place], [id number], . tel:[phone] Referring Provider: Alok Chambers, [address] [place], [address]. tel:[phone] [facility], [address], [place], [place], [id number], [place] tel:[phone] SEC Christian ARAUJO Professional Complete Exam (chief complaint) Vitreous degeneration, right eyeVitreous syneresis of right eyeAge-relate d nuclear cataract, bilateralPavi ng stone degeneration of right retina 8 Wei Masters. [address] [facility] [address], [place], [place], [id number], [place]. tel:[phone] Referring Provider: Alok Chambers, [address] [place], [address]. tel:[phone] Family History Family Member Type Diagnosis Age At Onset No Information Payers Payer name Insurance type Covered republican ID José acevedo(s) Cesar ([employer], Gold Advantage) [id number] Social History Type Description Quantity Date Captured Comments Alcohol Use Details No Caffeine Use Details Tobacco Use Status Light cigarette smok er (1-9 cigs/day) Smoking Status Light tobacco smoker Smoking Tobacco Use Details Cigarette: Years Used 40 Cigarette: 8 Cigarettes per day, Pack Year: 16 Sex Male Chief Complaint And Reason For Visit From encounter dated '12/09/2017 15:15'. 1 month PVD follow up (chief complaint). Description: The 62 year old male presents for evaluation of 1 month PVD follow up in the right eye. Patient states the right eye is no better he still sees acurly black image in his [facility] and sees a half dark [facility] as well. No flashes or floaters. Reason For Referral Reason For Referral No Information Plan Of Treatment Date Type Action Status Goal Tobacco cessation counseling completed History Of Present Illness Encounter Date Complaint History Of Prese nt Illness 1 month PVD follow up The 62 yea r old male presents for evaluation of 1 month PVD follow up in the right eye. Patient states the right eye is no better he still sees a curly black image in his [facility] and sees a half dark [facility] as well. No flashes or floaters. Complete Exam The 62 year old male presents for a complete exam ou. Patient c/o about 3 weeks ago he noticed bubbles in OD vision and patient states the bubbles are now gone and now he has a spider web in OD vision x 3 days. Patient states OS is doing good. Functional Status Date Functional Assessmen t No Information Instructions Date Instruction Additional Infor matrichard Educational material given Relat ed to PVD (posterior vitreous detachment), right eye Impression/Plan Return in 1 year for complete ex am Related to Age-related nuclear cataract, bilateral Impression/Plan Related to Age-r elated nuclear cataract, bilateral Surgery not indicated now. Relat ed to Age-related nuclear cataract, bilateral Assessments Type Assessment Date assessment PVD (posterior vitreous detachme nt), right eye Patient Care Teams Name Effective Dates (start - stop) Status Members No Information
--- NOTE | ~2025-02-28 | XR_ITS ---
EXAMINATION: XR chest 2V, 02/28/2025 17:10 CDT HISTORY: HTN, COPD COMPARISON: No comparisons available. Technique: 2 views obtained. Findings: There are COPD changes noted with scattered infiltrates in the right upper and left lower lobes. No pneumothorax. Heart is normal size. Mediastinal and hilar contours are within normal limits. Bony thorax no acute abnormality. Impression: Early bilateral pneumonia Reviewed, dictated and finalized at location A. Impression: Early bilateral pneumonia
--- OUTSIDE RECORDS SUMMARY | 2025-02-28 16:55 | XMS_ITS | Encounter Summary ---
Author Organization [facility] Address [address] [place] [address] Care Team Providers Care Non Licensed Nuclear Plant Operator Name Role Phone Miki David MD Unavailable [phone] Evelyn Zuluaga MD Primary Care Provider [phone] Encounter Details Date Type Department Care Team (Late st Contact Info) Description 11/21/2021 Zscaler Message Enc [facility] Medical Group Family & Internal Medicine [address] [address] Sydnie, [facility] Provider Ketoconazole shampoo Social History Tobacco Use Types Packs/Day Years Used Date Smoking Tobacco: Every Day Cigarettes 0.8 45 Smokeless Tobacco: Never Comments:cutting down Alcohol Use Standard Drinks/Week Comments Not Currently 0 (1 standard drink = 0.6 oz pur e alcohol) AUDIT-C Answer Date Recorded Q1: How often do you have a drink containing alc ohol? Never 10/24/2020 Average Number of Drinks Not on file 021 Frequency of Binge Drinking Not on file 09/2020 PHQ-2 Answer Date Recorded PHQ-2 Score - If the patient scores above 3, please move on to questions 3-9 0 08/22/2021 Sex and Gender Information Value Date Recorded Sex Assigned at Male 08/19/2024 3:24 PM WOODS RIDER Legal Sex Male 6:00 PM WOODS RIDER Gender Identity Not on file Sexual Orientation Not on file documented as of this encounter Progress Notes * Evelyn Zuluaga MD - 11/30/2021 12:02 PM CDT Okay to send for SEBORRHEIC DERMATITIS diagnosis. thanks documented in this encounter Plan of Treatment Upcoming Encounters Date Type Department Care Team (Late st Contact Info) Description 03/21/2025 2:00 PM CDT Office Visit [facility] Family & Internal Medicine [facility] [address] [place] [phone] [place] [address] [facility] [place] [address] 03/22/2025 10:00 AM CDT Appointment [facility] [address] [place], [place] [phone] [place] [address] [facility] [place] [id number] 06/06/2025 11:00 AM WOODS RIDER Office Visit [facility] [address] [place] [address] Calixto Patton MD [facility] [address] [place] [address] 06/20/2025 1:00 PM WOODS RIDER Hospital Encounter [facility] [address] [place] [address] Kodi Morocho MD [facility] [address] [place] [address] 06/20/2025 1:00 PM WOODS RIDER - 06/20/2025 1:30 PM WOODS RIDER Surgery [facility] [address] [facility] [place] [address] Kodi Morocho MD [facility] [address] [place] [address] EGD 06/30/2025 11:20 AM WOODS RIDER Office Visit [facility] Family & Internal Medicine - [place] [address] [place] [address] [place] [address] [facility]. [address] [place] [address] 07/06/2025 1:30 PM WOODS RIDER Appointment [facility] [address] [place] [address] Dionisio Watts MD [facility]. [facility] [address] [place], [place] [address] Scheduled Procedures Name Priority Associated Diagnoses Date/Ti me EGD Epigastric pain Gastroesophageal reflux disease, unspecified whether esophagitis present Schatzki's ring Hiatal hernia Weight loss Nausea and vomiting, unspecified vomiting type 06/20/2025 1:00 PM WOODS RIDER documented as of this encounter Visit Diagnoses Not on filedocumented in this encounter Additional Health Concerns Assessment Noted Time PHQ-9 Depression Total Score: 0 08/23/19 22 2:19 PM WOODS RIDER documented as of this encounter Care Teams Non Licensed Nuclear Plant Operator Relationship Specialty Start [place] [address] [facility] [place] [address] PCP - General FAMILY PRACTICE 07/13/21 Miki David MD [address] [place] [address] Consulting Physician OTOLARYNGOLOGY 01/15/21 documented as of this encounter
--- OUTSIDE RECORDS SUMMARY | 2025-02-28 16:55 | XMS_ITS | Encounter Summary ---
Author Organization [facility] Address [address] [place] [address] Care Team Providers Care Silk Hanger Name Role Phone Rojelio Wagner MD Primary Care Provider [phone] Miki David MD Unavailable [phone] Evelyn Zuluaga MD Primary Care Provider [phone] Encounter Details Date Type Department Care Team (Late st Contact Info) Description 11/28/2018 Abstract [facility] CONVERSION [address] [place] [address] , Generic Conversion, Social History Tobacco Use Types Packs/Day Years Used Date Smoking Tobacco: Never Assessed Sex and Gender Information Value Date Recorded Sex Assigned at Male 08/19/2024 3:24 PM MASTIC FLOOR LAYER Legal Sex Male 6:00 PM MASTIC FLOOR LAYER Gender Identity Not on file Sexual Orientation Not on file documented as of this encounter Plan of Treatment Upcoming Encounters Date Type Department Care Team (Late st Contact Info) Description 03/21/2025 2:00 PM CDT Office Visit [facility] Family & Internal Medicine [facility] [phone] [place] [phone] [place] [address] [facility]. [address] [place] [address] 03/22/2025 10:00 AM CDT Appointment [facility] [address] [place] [phone] [place] [address] [facility]. [address] [place] [address] 06/06/2025 11:00 AM MASTIC FLOOR LAYER Office Visit [facility] [address] [place] [address] Calixto Patton MD [facility] [address] [place] [address] 06/20/2025 1:00 PM MASTIC FLOOR LAYER Hospital Encounter [facility] [place] [address] Kodi Morocho MD 3 [facility] [address] [place] [address] 06/20/2025 1:00 PM MASTIC FLOOR LAYER - 06/20/2025 1:30 PM MASTIC FLOOR LAYER Surgery [facility] [place] [address] Kodi Morocho MD 3 [facility] [address] [place] [address] EGD 06/30/2025 11:20 AM MASTIC FLOOR LAYER Office Visit [facility] Group Family & Internal Medicine - [place] [address] [place] [address] [place] [address] [facility]. [address] [place] [address] 07/06/2025 1:30 PM MASTIC FLOOR LAYER Appointment [facility] [address] [place], [place] [phone] Dionisio Watts MD Three [facility]. [address] [place] [address] Scheduled Procedures Name Priority Associated Diagnoses Date/Ti me EGD Epigastric pain Gastroesophageal reflux disease, unspecified whether esophagitis present Schatzki's ring Hiatal hernia Weight loss Nausea and vomiting, unspecified vomiting type 06/20/2025 1:00 PM MASTIC FLOOR LAYER documented as of this encounter Visit Diagnoses Not on filedocumented in this encounter Additional Health Concerns Infection Onset Date Last Indicated Resolved Time COVID-19 Rule Out 02/19/2021 02/19/2021 02/19/2021 11:40 PM CDT documented as of this encounter Care Teams Silk Hanger Relationship Specialty Start Date End Date Rojelio Wagner MD PCP - General INTERNAL MEDICINE 10/24/20 07/12/21 [place] [address] [address] [place] [address] PCP - General FAMILY PRACTICE 07/13/21 Miki David MD [address] [place] [address] Consulting Physician OTOLARYNGOLOGY 01/15/21 documented as of this encounter
--- OUTSIDE RECORDS SUMMARY | 2025-02-28 16:55 | XMS_ITS | Encounter Summary ---
Author Organization [facility] Address [address] [place] [address] Care Team Providers Care Project Management Instructor Name Role Phone Miki David MD Unavailable [phone] Evelyn Zuluaga MD Primary Care Provider [phone] Encounter Details Date Type Department Care Team (Late Contact Info) Description 12/18/2022 MyChart Message Enc [facility] Medical [address] [address] [employer], [facility] Provider Air Quality Message Social History Tobacco Use Types Packs/Day Years Used Date Smoking Tobacco: Light Smoker Cigarettes 0.5 45 Smokeless Tobacco: Never Comments:cutting down Alcohol Use Standard Drinks/Week Comments Never 0 (1 standard drink = 0.6 oz pur e alcohol) AUDIT-C Answer Date Recorded Q1: How often do you have a drink containing alc ohol? Never 10/24/2020 Average Number of Drinks Not on file 021 Frequency of Binge Drinking Not on file 09/2020 PHQ-2 Answer Date Recorded Patient Health Questionnaire-2 Score 0 10/07/2022 Sex and Gender Information Value Date Recorded Sex Assigned at Male 08/19/2024 3:24 PM DEPUTY BAILIFF Legal Sex Male 6:00 PM DEPUTY BAILIFF Gender Identity Not on file Sexual Orientation Not on file documented as of this encounter Plan of Treatment Upcoming Encounters Date Type Department Care Team (Late Contact Info) Description 03/21/2025 2:00 PM CDT Office Visit [facility] Medical [facility] Family & Internal Medicine [facility] [phone] [place] [phone] [place] [address] [facility]. [address] [place] [address] 03/22/2025 10:00 AM CDT Appointment [facility] [address] [facility] [address] [place] [address] [facility]. [address] [place] [address] 06/06/2025 11:00 AM DEPUTY BAILIFF Office Visit [facility] [address] [place], [place] [phone] Calixto Patton MD Three [facility] [address] [place] [address] 06/20/2025 1:00 PM DEPUTY BAILIFF Hospital Encounter [facility] [place] [address] Kodi Morocho MD 3 [facility] [address] [place] [address] 06/20/2025 1:00 PM DEPUTY BAILIFF - 06/20/2025 1:30 PM DEPUTY BAILIFF Surgery [facility] [place] [address] Kodi Morocho MD 3 [facility] [address] [place] [address] EGD 06/30/2025 11:20 AM DEPUTY BAILIFF Office Visit [facility] Group Family & Internal Medicine - [place] [address] [place] [address] [place] [address] [facility]. [address] [place] [address] 07/06/2025 1:30 PM DEPUTY BAILIFF Appointment [facility] [address] [place] [address] Dionisio Watts MD [place] [address] [place], [place] [phone] Scheduled Procedures Name Priority Associated Diagnoses Date/Ti me EGD Epigastric pain Gastroesophageal reflux disease, unspecified whether esophagitis present Schatzki's ring Hiatal hernia Weight loss Nausea and vomiting, unspecified vomiting type 06/20/2025 1:00 PM DEPUTY BAILIFF documented as of this encounter Visit Diagnoses Not on filedocumented in this encounter Additional Health Concerns Assessment Noted Time PHQ-9 Depression Total Score: 0 04/04/20 2:31 PM CDT documented as of this encounter Care Teams Project Management Instructor Relationship Specialty Start [place] [address] [address] [place] [address] PCP - General FAMILY PRACTICE 07/13/21 Miki David MD [address] [place] [address] Consulting Physician OTOLARYNGOLOGY 01/15/21 documented as of this encounter
--- OUTSIDE RECORDS SUMMARY | 2025-02-28 16:55 | XMS_ITS | Clinical Summary ---
Author Organization [facility] Address [address] [place] [address] Phone Care Team Providers Care Stunt Man Name Role Phone Rojelio Wagner MD Primary Care Provider [phone] Allergies Active Allergy Reactions Criticality Noted Date Comments Linaclotide Other (see Comments) 01/08/2021 Penicillins Swelling 11/08/2018 Medications Budesonide-Form oterol Fumarate (SYMBICORT IN) take by inhalation. Active Zolpidem Tartrate (AMBIEN PO) Take by mouth. Act camila albuterol 108 (90 Base) MCG/ACT Aerosol Solution INHALE 2 PUFFS BY MOUTH EVERY 6 HOURS NEEDED FOR WHEEZING FOR SHORTNESS OF BREATH 1 Active Cholecalciferol 50 mcg Tablet Take 1 Tablet by mouth. Active mirtazapine (REMERON) 15 MG Tablet Take 15 mg by mouth 2 times daily. 1 Active omeprazole (PriLOSEC) 40 MG CAPSULE DELAYED RELEASE TAKE 1 CAPSULE BY MOUTH TWICE DAILY 1 Active pregabalin (LYRICA) 50 MG Capsule TAKE 1 CAPSULE BY MOUTH TWICE DAILY 1 Active traMADol (ULTRAM) 50 MG Tablet TAKE 1 TABLET BY MOUTH THREE TIMES DAILY NEEDED FOR PAIN 1 Active ketoconazole (NIZORAL) 2 % Shampoo APPLY TOPICALLY TWICE A WEEK FOR 30 DAYS 1 Active sucralfate (CARAFATE) 1 GM Tablet TAKE 1 TABLET BY MOUTH 4 TIMES DAILY 1 HOUR BEFORE MEALS AN AT BEDTIME 1 Active Hydrocortisone, Perianal, (Anusol-HC) 2.5 % Cream Apply 2 times daily. Apply to rectum as directed. 28 g 5 Active lidocaine (XYLOCAINE) 5 % Ointment Apply as needed for Pain. Application Site: Rectum 30 g 5 Active docusate sodium (COLACE) 100 MG Capsule Take 1 Capsule by mouth 2 times daily. 10 Capsule 5 Active psyllium (METAMUCIL) 58.6 % Powder Take 1 Packet by mouth daily. 174 g 5 Active Encounters Date Type Department Care Team Description 02/22/2025 10:18 AM CDT - 02/22/2025 10:59 AM CDT Emergency [facility] Emergency [address] [place] [address] Siddhartha Vergara MD External hemorrhoid Discharge Disposition: Discharged to home or Selfcare 02/22/2025 Travel from Last 3 Months Social History Tobacco Use Types Packs/Day Years Used Date Smoking Tobacco: Every Day Cigarettes 0.5 45 Smokeless Tobacco: Never Tobacco Cessation:Ready to Q uit: Yes; Counseling Given: Yes Comments:trying to quit Alcohol Use Standard Drinks/Week Comments Never 0 (1 standard drink = 0.6 oz pur e alcohol) AUDIT-C Answer Date Recorded Frequency of Alcohol Consumption Never 11/08/2018 Average Number of Drinks Not on file 019 Frequency of Binge Drinking Not on file 10/21 PHQ-2 Answer Date Recorded Total Score - Questions 1-9 0 04/23 Sex and Gender Information Value Date Recorded Sex Assigned at Not on file Legal Sex Male 12:36 AM CDT Gender Identity Not on file Sexual Orientation Not on file Last Filed Vital Signs Vital Sign Reading Time Taken Comments Blood Pressure 99/64 02/22/2025 10:20 AM CDT Pulse 62 02/22/2025 10:20 AM CDT Temperature 36.3 C (97.4 F) 02/22/2025 10:20 AM CDT Respiratory Rate 18 02/22/2025 10:20 AM CDT Oxygen Saturation 98% 02/22/2025 10:20 AM CDT Inhaled Oxygen Concentration - - Weight 68 kg (150 lb) 02/22/2025 10:20 AM CDT Height 188 cm (6' 2) 02/22/2025 10:20 AM CDT Body Mass Index 19.26 02/22/2025 10:20 AM CDT Plan of Treatment Health Maintenance Due Date Last Done Comments Hepatitis C Virus (HCV) Screening 1955 TdaP Immunization 1954 Cologuard 1999 Immunochemical Fecal Occult Blood 1999 Pneumococcal Immunization (50+ years) (1 of 1 - PCV) 2004 Zoster Immunization (1 of 2) 2004 Influenza Immunization (#1) 2025 SARS-COV-2 Immunization (1 - season) 2025 Respiratory Syncytial Virus (RSV) Immunization (Adult) (1 - 1-dose 75+ series) 2029 Colonoscopy 02/22/2031 02/22/2021 Colorectal Cancer Screening 02/22/2031 Lung Cancer Screening Discontinued 03/13/2023 , 05/01/2021, 05/01/2021, Additional history exists Hepatitis B Immunization Aged Out No longer eligible based on patient's age to complete this topic Human Papillomavirus (HPV) Immunization Aged Out No longer eligible based on patient's age to complete this topic Meningococcal Immunization (ACWY) Aged Out No longer eligible based on patient's age to complete this topic Rotavirus Immunization Aged Out No lo nger eligible based on patient's age to complete this topic Procedures Procedure Name Priority Date/Time Associated Diagnosis Comments CT CHEST W CONTRAST Routine 03/10/2019 9 :52 PM CDT Lung nodule Simple chronic bronchitis (HCC) from Last 3 Months or Most Recently Relevant to Health Maintenance Results * CT CHEST W CONTRAST (03/10/2019 9:52 PM CDT) Anatomical Region Laterality Modality Chest N/A Computed Tomogra phy 03/11/2019 12:4 4 PM CDT Impressions 03/11/2019 12:47 PM CDT IMPRESSION: Stable noncalcified pulmonary nodules measuring up to 8 mm. Pulmonary emphysema is noted. 6 months follow-up recommended. Narrative 03/11/2019 12:47 PM CDT EXAM DESCRIPTION: CT CHEST W CONTRAST REASON FOR STUDY: Solitary pulmonary nodule TECHNIQUE: CT scan of the chest with intravenous contrast. Reconstructed coronal and sagittal MPR images reviewed. All images stored on PACS. Automated exposure control was used as a dose optimization technique for this examination. CONTRAST TYPE/DOSE: 100CC OF ISOVUE 370 INJECTED VIA RAC COMPARISON: 06/05/2018 FINDINGS: LUNGS: 8 mm subpleural nodule right middle lobe image 80. 5 mm nodule image 77 right lower lobe. Subpleural nodule left lower lobe image 97 measuring 8 mm few other nodules identified which are also stable. There is evidence of pulmonary emphysema. No infiltrates or consolidation. PLEURA: No effusion. No pneumothorax. MEDIASTINUM/NARCISA: No identified masses or abnormal nodes. HEART: Heart size is normal with no pericardial effusion. 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 No aneurysms of the aorta. AXILLA: No adenopathy. CHEST WALL: No masses. No subcutaneous air. HARDWARE/LINES/TUBES: None. UPPER ABDOMEN: No significant abnormality. MUSCULOSKELETAL: No significant abnormality. OTHER: No other significant abnormality. THIS IS AN ELECTRONICALLY VERIFIED FINAL REPORT 03/11/2019 12:44 PM - Electronically signed by Gildardo Moreland M.D. [place]: CHANCE Report ID: [id number] Reading Location: [id number] Procedure Note Gildardo Moreland MD - 03/11/2019 EXAM DESCRIPTION: CT CHEST W CONTRAST REASON FOR STUDY: Solitary pulmonary nodule TECHNIQUE: CT scan of the chest with intravenous contrast. Reconstructed coronal and sagittal MPR images reviewed. All images stored on PACS. Automated exposure control was used as a dose optimization technique for this examination. CONTRAST TYPE/DOSE: 100CC OF ISOVUE 370 INJECTED VIA RAC COMPARISON: 06/05/2018 FINDINGS: LUNGS: 8 mm subpleural nodule right middle lobe image 80. 5 mm nodule image 77 right lower lobe. Subpleural nodule left lower lobe image 97 measuring 8 mm few other nodules identified which are also stable. There is evidence of pulmonary emphysema. No infiltrates or consolidation. PLEURA: No effusion. No pneumothorax. MEDIASTINUM/NARCISA: No identified masses or abnormal nodes. HEART: Heart size is normal with no pericardial effusion. 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 No aneurysms of the aorta. AXILLA: No adenopathy. CHEST WALL: No masses. No subcutaneous air. HARDWARE/LINES/TUBES: None. UPPER ABDOMEN: No significant abnormality. MUSCULOSKELETAL: No significant abnormality. OTHER: No other significant abnormality. THIS IS AN ELECTRONICALLY VERIFIED FINAL REPORT 03/11/2019 12:44 PM - Electronically signed by Gildardo Moreland M.D. NC: CHANCE Report ID: [id number] Reading Location: [id number] IMPRESSION: Stable noncalcified pulmonary nodules measuring up to 8 mm. Pulmonary emphysema is noted. 6 months follow-up recommended. Rio Munguia MD IMG CT ORDERABLES Final Resul t from Last 3 Months or Most Recently Relevant to Health Maintenance Insurance MEDICARE C HUMANA MEDICARE C HUMANA Care Teams Stunt Man Relationship Specialty [place] [address] [place] [address] PCP - General General Surgery 01/10/21
--- OUTSIDE RECORDS SUMMARY | 2025-02-28 16:55 | XMS_ITS | Encounter Summary ---
Author Organization [facility] Address [address] [place] [address] Care Team Providers Care President Celebrity Acquistion Name Role Phone Miki David MD Unavailable Evelyn Zuluaga MD Primary Care Provider [phone] Encounter Details Date Type Department Care Team (Late Contact Info) Description 12/25/2021 [facility] Message Enc [facility] Family & Internal [address] [address] Sydnie, [facility] Provider Routine Follow up appt Social History Tobacco Use Types Packs/Day Years [...] Sex Assigned at Male 08/19/2024 3:24 PM BRANCH BANKER Legal Sex Male 6:00 PM BRANCH BANKER Gender Identity Not on file Sexual Orientation Not on file documented as of this encounter Plan of Treatment Upcoming Encounters Date Type Department Care Team (Late Contact Info) Description 03/21/2025 2:00 PM CDT Office Visit [facility] Family & Internal [address] [place] [address] [place] [address] [facility] [address]. [address] [place] [address] 03/22/2025 10:00 AM CDT Appointment [facility] [address] [place] [address] [place] [address] [facility] [place] [address] 06/06/2025 11:00 AM BRANCH BANKER Office Visit [facility] [place] [address] [facility] [address] [place] [address] Calixto Patton MD Three [facility] Suite [facility] [place] [address] 06/20/2025 1:00 PM BRANCH BANKER Hospital Encounter [facility] [address] Kodi Morocho MD [address] [address] 06/20/2025 1:00 PM BRANCH BANKER - 06/20/2025 1:30 PM BRANCH BANKER Surgery [facility] [place] [address] Kodi Morocho MD 3 [facility] [address] [place] [address] EGD 06/30/2025 11:20 AM BRANCH BANKER Office Visit [facility] Family & Internal Medicine - [place] [address] [place] [address] [place] [address] [address] [place] [address] 07/06/2025 1:30 PM BRANCH BANKER Appointment [facility] [address] [place] [address] Dionisio Watts MD Three [place] [address] [place] [address] Scheduled Procedures Name Priority Associated Diagnoses Date/Ti me EGD Epigastric pain Gastroesophageal reflux disease, unspecified whether esophagitis present Schatzki's ring Hiatal hernia Weight loss Nausea and vomiting, unspecified vomiting type 06/20/2025 1:00 PM BRANCH BANKER documented as of this encounter Visit Diagnoses Not on filedocumented in this encounter Additional Health Concerns Assessment Noted Time PHQ-9 Depression Total Score: 0 08/23/19 2:19 PM BRANCH BANKER documented as of this encounter Care Teams President Celebrity Acquistion Relationship Specialty [place] [address] [address] [place] [address] PCP - General FAMILY PRACTICE 07/13/21 Miki David MD [address] [place] [address] Consulting Physician OTOLARYNGOLOGY 01/15/21 documented as of this encounter
--- OUTSIDE RECORDS SUMMARY | 2025-02-28 16:55 | XMS_ITS | Encounter Summary ---
Author Organization [facility] Address [address] [place] [address] Care Team Providers Care Assistant Store Manager Trainee Name Role Phone Miki David MD Unavailable [phone] Evelyn Zuluaga MD Primary Care Provider [phone] Encounter Details Date Type Department Care Team (Late st Contact Info) Description 10/17/2021 [email or web address] Message Enc [facility] Medical Group Family & Internal Medicine [address] [address] Sydnie, [facility] Provider Mirtazipine Social History Tobacco Use Types Packs/Day Years [...] Sex Assigned at Male 08/19/2024 3:24 PM MUD ENGINEER Legal Sex Male 6:00 PM MUD ENGINEER Gender Identity Not on file Sexual Orientation Not on file COVID-19 Exposure Response Date Recorded In the last 10 days, have yo u been in contact with someone who was confirmed or suspected to have Coronavirus/COVID-19? No / Unsure 09/21/2021 2:14 PM CDT documented as of this encounter Plan of Treatment Upcoming Encounters Date Type Department Care Team (Late st Contact Info) Description 03/21/2025 2:00 PM CDT Office Visit [facility] Medical Group Family & Internal Medicine - [place] [address] [place] [address] [place] [address] [facility] [place], [place] [address] 03/22/2025 10:00 AM CDT Appointment [facility] [address] [place] [address] [place] [address] [facility] [place] [address] 06/06/2025 11:00 AM MUD ENGINEER Office Visit [facility] [address] [place] [address] Calixto Patton MD Three [facility] [address] [place] [address] 06/20/2025 1:00 PM MUD ENGINEER Hospital Encounter [facility] [place] [address] Kodi Morocho MD 3 [facility] Adam [address] [place] [address] 06/20/2025 1:00 PM MUD ENGINEER - 06/20/2025 1:30 PM MUD ENGINEER Surgery [facility] [place] [address] Kodi Morocho MD 3 [facility] [address] [place] [address] EGD 06/30/2025 11:20 AM MUD ENGINEER Office Visit [facility] Medical Group Family & Internal Medicine - [place] [address] [place] [address] [place] [address] [facility] [place] [address] 07/06/2025 1:30 PM MUD ENGINEER Appointment [facility] [address] [place] [address] Dionisio Watts MD [address] [address] Scheduled Procedures Name Priority Associated Diagnoses Date/Ti me EGD Epigastric pain Gastroesophageal reflux disease, unspecified whether esophagitis present Schatzki's ring Hiatal hernia Weight loss Nausea and vomiting, unspecified vomiting type 06/20/2025 1:00 PM MUD ENGINEER documented as of this encounter Visit Diagnoses Not on filedocumented in this encounter Additional Health Concerns Assessment Noted Time PHQ-9 Depression Total Score: 0 08/23/19 22 2:19 PM MUD ENGINEER documented as of this encounter Care Teams Assistant Store Manager Trainee Relationship Specialty [place] [address] [facility]. [address] [place] [address] PCP - General FAMILY PRACTICE 07/13/21 Miki David MD [address] [place] [address] Consulting Physician OTOLARYNGOLOGY 01/15/21 documented as of this encounter
--- OUTSIDE RECORDS SUMMARY | 2025-02-28 16:55 | XMS_ITS | Encounter Summary ---
Author Organization [facility] Address [address] [place] [address] Care Team Providers Care Lab Clerk Name Role Phone Miki David MD Unavailable [phone] Evelyn Zuluaga MD Primary Care Provider [phone] Encounter Details Date Type Department Care Team (Late Contact Info) Description 08/22/2024 [employer] Message Enc [facility] Medical Group Family & Internal Medicine [address] [address] Evelyn Zuluaga MD [address] [place] [address]. [address] [place] [address] BP Social History Tobacco Use Types Packs/Day Years Used Date Smoking Tobacco: Former Cigarettes 0.5 45 Q uit: 06/23/2023 Smokeless Tobacco: Never Comments:cutting down Alcohol Use Standard Drinks/Week Comments Never 0 (1 standard drink = 0.6 oz pur e alcohol) AUDIT-C Answer Date Recorded Q1: How often do you have a drink containing alc ohol? Never 10/24/2020 Average Number of Drinks Not on file 021 Frequency of Binge Drinking Not on file 09/2020 PHQ-2 Answer Date Recorded Patient Health Questionnaire-2 Score 0 08/19/2024 Sex and Gender Information Value Date Recorded Sex Assigned at Male 08/19/2024 3:24 PM SUPERVISOR CIGARETTE MAKING DEPARTMENT Legal Sex Male 6:00 PM SUPERVISOR CIGARETTE MAKING DEPARTMENT Gender Identity Not on file Sexual Orientation Not on file documented as of this encounter Plan of Treatment Upcoming Encounters Date Type Department Care Team (Late st Contact Info) Description 03/21/2025 2:00 PM CDT Office Visit [facility] Family & Internal Medicine - [place] [address] [place] [address] [place] [address] [facility] [address] [place] [address] 03/22/2025 10:00 AM CDT Appointment [facility] [address] [place] [address] [place] [address] [facility] [place] [address] 06/06/2025 11:00 AM SUPERVISOR CIGARETTE MAKING DEPARTMENT Office Visit [facility] [address] [place] [address] Calixto Patton MD Three [facility] [address] [place] [address] 06/20/2025 1:00 PM SUPERVISOR CIGARETTE MAKING DEPARTMENT Hospital Encounter [facility] [address] Kodi Morocho MD [address] [address] 06/20/2025 1:00 PM SUPERVISOR CIGARETTE MAKING DEPARTMENT - 06/20/2025 1:30 PM SUPERVISOR CIGARETTE MAKING DEPARTMENT Surgery [facility] [place] [address] Kodi Morocho MD 3 [facility] [address] [place] [address] EGD 06/30/2025 11:20 AM SUPERVISOR CIGARETTE MAKING DEPARTMENT Office Visit [facility] Family & Internal Medicine - [place] [address] [place] [address] [place] [address] [facility] [address] [place] [address] 07/06/2025 1:30 PM SUPERVISOR CIGARETTE MAKING DEPARTMENT Appointment [facility] [address] [facility] [place] [address] Dionisio Watts MD Three [address] [id number] Scheduled Procedures Name Priority Associated Diagnoses Date/Ti me EGD Epigastric pain Gastroesophageal reflux disease, unspecified whether esophagitis present Schatzki's ring Hiatal hernia Weight loss Nausea and vomiting, unspecified vomiting type 06/20/2025 1:00 PM SUPERVISOR CIGARETTE MAKING DEPARTMENT documented as of this encounter Visit Diagnoses Not on filedocumented in this encounter Additional Health Concerns Assessment Noted Time PHQ-9 Depression Total Score: 0 08/19/19 25 3:44 PM SUPERVISOR CIGARETTE MAKING DEPARTMENT documented as of this encounter Care Teams Lab Clerk Relationship Specialty [place] [address] [address] [place] [address] PCP - General FAMILY PRACTICE 07/13/21 Miki David MD [address] [place] [address] Consulting Physician OTOLARYNGOLOGY 01/15/21 documented as of this encounter
--- OUTSIDE RECORDS SUMMARY | 2025-02-28 16:55 | XMS_ITS | Encounter Summary ---
Author Organization [facility] Address [address] [place] [address] Care Team Providers Care Export Clerk Name Role Phone Miki David MD Unavailable [phone] Evelyn Zuluaga MD Primary Care Provider [phone] Encounter Details Date Type Department Care Team (Late Contact Info) Description 09/05/2024 [employer] Message Enc [facility] Medical Group Family & Internal Medicine [address] [address] Evelyn Zuluaga MD [address] [place] [address]. [address] [place] [address] BP Social History Tobacco Use [...] Sex Assigned at Male 08/19/2024 3:24 PM RETAIL SERVICE SPECIALIST Legal Sex Male 6:00 PM RETAIL SERVICE SPECIALIST Gender Identity Not on file Sexual Orientation Not on file documented as of this encounter Plan of Treatment Upcoming Encounters Date Type Department Care Team (Late st Contact Info) Description 03/21/2025 2:00 PM CDT Office Visit [facility] Family & Internal Medicine - [place] [address] [place] [address] [place] [address] [facility] [address] [place] [address] 03/22/2025 10:00 AM CDT Appointment [facility] [address] [place] [address] [place] [address] [facility] [place] [address] 06/06/2025 11:00 AM RETAIL SERVICE SPECIALIST Office Visit [facility] [address] [place] [address] Calixto Patton MD Three [facility] [address] [place] [address] 06/20/2025 1:00 PM RETAIL SERVICE SPECIALIST Hospital Encounter [facility] [address] Kodi Morocho MD [address] [address] 06/20/2025 1:00 PM RETAIL SERVICE SPECIALIST - 06/20/2025 1:30 PM RETAIL SERVICE SPECIALIST Surgery [facility] [place]o/[place] [address] Kodi Morocho MD 3 [facility] [address] [place] [address] EGD 06/30/2025 11:20 AM RETAIL SERVICE SPECIALIST Office Visit [facility] Family & Internal Medicine - [place] [address] [place] [address] [place] [address] [facility] [address] [place] [address] 07/06/2025 1:30 PM RETAIL SERVICE SPECIALIST Appointment [facility] Ul[facility]ound [address] [facility] [place] [address] Dionisio Watts MD Three [address] [address] Scheduled Procedures Name Priority Associated Diagnoses Date/Ti me EGD Epigastric pain Gastroesophageal reflux disease, unspecified whether esophagitis present Schatzki's ring Hiatal hernia Weight loss Nausea and vomiting, unspecified vomiting type 06/20/2025 1:00 PM RETAIL SERVICE SPECIALIST documented as of this encounter Visit Diagnoses Not on filedocumented in this encounter Additional Health Concerns Assessment Noted Time PHQ-9 Depression Total Score: 0 08/19/19 25 3:44 PM RETAIL SERVICE SPECIALIST documented as of this encounter Care Teams Export Clerk Relationship Specialty [place] [address] [address] [place] [address] PCP - General FAMILY PRACTICE 07/13/21 Miki David MD [address] [place] [address] Consulting Physician OTOLARYNGOLOGY 01/15/21 documented as of this encounter
--- OUTSIDE RECORDS SUMMARY | 2025-02-28 16:55 | XMS_ITS | Clinical Summary ---
Author Organization [facility] Address [address] [place] [address] Care Team Providers Care Wringer Operator Name Role Phone Rojelio Wagner MD Unavailable [phone] Rojelio Wagner MD Primary Care Provider + Allergies Active Allergy Reactions Criticality Noted Date Comments Penicillins Medications gabapentin (NEURONTIN) 300 mg capsuleIndicati ons:Neuropathic Pain Take 1 capsule (300 mg total) by mouth 3 (three) times a day For post-herpetic neuralgia: Take 1 tablet on day 1, Then take 2 tablets on day 2, Then take 3 tablets on day 3 and every day after that as instructed by your doctor. 90 capsule 11 1 Active LORazepam (Ativan) 1 mg tablet Take 0.5 tablets (0.5 mg total) by mouth every 8 (eight) hours as needed for anxiety 10 tablet [address] (PROTONIX) 40 mg EC tablet 1 Active mirtazapine (REMERON) 15 mg tablet Take 15 mg by mouth 2 (two) times a day 1 Active lidocaine 2 % solution APPLY SOLUTION TO MUCOUS MEMBRANE 4 TIMES DAILY NEEDED FOR PAIN 1 Active traMADoL (ULTRAM) 50 mg tablet TAKE 1 TABLET BY MOUTH TWICE DAILY NEEDED FOR PAIN 1 Active nortriptyline (PAMELOR) 10 mg capsule Take 1 capsule (10 mg total) by mouth nightly 30 capsule 1 1 Active zolpidem tartrate (ZOLPIDEM ORAL) Take by mouth Active budesonide/form oterol fumarate (SYMBICORT INHAL) Inhale Active SUMATRIPTAN SUCCINATE ORAL Take by mouth A ctive amitriptyline HCl (AMITRIPTYLINE ORAL) Take by mouth Active Active Problems Problem Noted Date Diagnosed Date Thyroid nodule 01/09/2021 Epigastric pain 09/12/2020 Tobacco use disorder 09/12/2020 Dysphagia 09/12/2020 Overview (09/12/2020): Added automatically from request for surgery [id number] Migraine without aura and responsive to treatmen t 03/01/2015 Cephalalgia 11/23/2014 Neck pain 02/09/2013 Overview (09/25/2016): Neck pain Vitamin D deficiency 02/09/2013 Overview (09/27/2016): Vitamin D deficiency Migraine 01/26/2013 Overview (09/25/2016): Migraine headache Carotid artery dissection 01/26/2013 Overview (09/27/2016): Dissection of carotid artery Encounters Date Type Department Care Team Description 02/04/[address] [facility] Gastroenterology at [address] [place] [address] [place], [place] from Last 3 Months Surgical History Surgery Date Site/Laterality Comments OTHER SURGICAL HISTORY hemorrhoids surgery APPENDECTOMY Appendectomy UPPER GASTROINTESTINAL ENDOSCOPY POLYPECTOMY COLONOSCOPY Medical History Medical History Date Comments Hx Other Medical Headache, migra ine Tension headache Headache, tensi on Chronic constipation GERD (gastroesophageal reflux disease) Dysphagia Hyperlipidemia past hx COPD (chronic obstructive pulmonary disease) Seizure disorder (HCC) x1 years ago after giving blood Migraines Anxiety Weight loss 80lbs in 7 month d Hiatal hernia Family History Medical History Relation Name Comments Diabetes Mother Diabetes mellit us; Migraines Mother Migraine; Hypertension Other 1 Family history of Hypertension; Migraines Other 2 Family history of Migraine; Relation Name Status Comments Mother Other 1 Other 2 Social History Tobacco Use Types Packs/Day Years Used Date Smoking Tobacco: Every Day Cigarettes 0.5 45 Smokeless Tobacco: Never Tobacco Cessation:Ready to Q uit: No Alcohol Use Standard Drinks/Week Comments No 0 (1 standard drink = 0.6 oz pur e alcohol) AUDIT-C Answer Date Recorded Q1: How often do you have a drink containing alc ohol? Never 10/19/2020 Average Number of Drinks Not on file 021 Frequency of Binge Drinking Not on file 09/22 Sex and Gender Information Value Date Recorded Sex Assigned at Not on file Legal Sex Male 11:27 PM OSTEOPATHY DOCTOR Gender Identity Not on file Sexual Orientation Not on file Obstetrics History Last Filed Vital Signs Vital Sign Reading Time Taken Comments Blood Pressure 109/74 07/24/2021 1:51 PM OSTEOPATHY DOCTOR Pulse 85 07/24/2021 1:51 PM OSTEOPATHY DOCTOR Temperature 36.6 C (97.8 F) 07/24/2021 1:51 PM OSTEOPATHY DOCTOR Respiratory Rate 14 10/19/2020 4:10 PM CDT Oxygen Saturation 97% 10/19/2020 4:10 PM CDT Inhaled Oxygen Concentration - - Weight 62.6 kg (138 lb) 07/24/2021 1:51 PM OSTEOPATHY DOCTOR Height 188 cm (6' 2) 07/24/2021 1:51 PM OSTEOPATHY DOCTOR Body Mass Index 17.72 07/24/2021 1:51 PM OSTEOPATHY DOCTOR Plan of Treatment Not on file Insurance [employer] MEDICARE PPO [facility] MEDICARE HMO Advance Directives For more information, please contact: [phone] * Full Code (Latest Code Status on File) Date Activated Date Inactivated Comments 10/19/2020 1:40 PM 10/19/2020 9:03 PM * Full Code Date Activated Date Inactivated Comments 09/26/2020 11:33 AM 09/26/2020 5:08 PM Care Teams Wringer Operator Relationship Specialty Start Date End Date Rojelio Wagner MD PCP - General Internal Medicine 01/01/21 Rojelio Wagner MD Referring Physician Internal Medicine 12/29/20
--- OUTSIDE RECORDS SUMMARY | 2025-02-28 16:55 | XMS_ITS | Encounter Summary ---
Author Organization [facility] Address [address] [place] [address] Care Team Providers Care Diver Assistant Name Role Phone Rojelio Wagner MD Primary Care Provider [phone] Miki David MD Unavailable [phone] Evelyn Zuluaga MD Primary Care Provider [phone] Encounter Details Date Type Department Care Team (Late st Contact Info) Description 02/15/2021 Prep for Procedure [facility] [place] [id number] Jorge Mcguire MD [address] [id number] Social History Tobacco Use Types Packs/Day Years Used Date Smoking Tobacco: Every Day Cigarettes 0.8 45 Smokeless Tobacco: Never Alcohol Use Standard Drinks/Week Comments Not Currently [...] please move on to questions 3-9 0 10/24/2020 Sex and Gender Information Value Date Recorded Sex Assigned at Male 08/19/2024 3:24 PM SAWDUST DRIER Legal Sex Male 6:00 PM SAWDUST DRIER Gender Identity Not on file Sexual Orientation Not on file COVID-19 Exposure Response Date Recorded In the last month, have you been in contact with someone who was confirmed or suspected to have Coronavirus / COVID-19? No / Unsure 02/15/2021 2:54 PM CDT documented as of this encounter Plan of Treatment Upcoming Encounters Date Type Department Care Team (Late st Contact Info) Description 03/21/2025 2:00 PM CDT Office Visit [facility] Family & Internal Medicine - [place] [address] [place] [address] [place] [address] [facility]. [address] [place] [phone] 03/22/2025 10:00 AM CDT Appointment [facility] [address] [place], [place] [phone] [place] [address] [facility]. [address] [place] [phone] 06/06/2025 11:00 AM SAWDUST DRIER Office Visit [facility] [id number] [facility] [address] [place] [address] Calixto Patton MD [facility] [address] [place] [address] 06/20/2025 1:00 PM SAWDUST DRIER Hospital Encounter [facility] [place] [address] Kodi Morocho MD 3 [facility] [address] [place] [address] 06/20/2025 1:00 PM SAWDUST DRIER - 06/20/2025 1:30 PM SAWDUST DRIER Surgery [facility] [address] Kodi Morocho MD 3 [facility] [address] [place] [address] EGD 06/30/2025 11:20 AM SAWDUST DRIER Office Visit [facility] Family & Internal Medicine - [place] [address] [place] [address] [place] [address] [facility]. [address] [place], [place] [phone] 07/06/2025 1:30 PM SAWDUST DRIER Appointment [facility] [address] [place], [place] [phone] Dionisio Watts MD [facility]. [facility] [address] [place], [place] [address] Scheduled Procedures Name Priority Associated Diagnoses Date/Ti me EGD Epigastric pain Gastroesophageal reflux disease, unspecified whether esophagitis present Schatzki's ring Hiatal hernia Weight loss Nausea and vomiting, unspecified vomiting type 06/20/2025 1:00 PM SAWDUST DRIER documented as of this encounter Results * CORONAVIRUS (COVID 19) (02/19/2021 10:05 AM CDT) SPEC DESCRIPTION NASAL 02/20/20 10:06 AM CDT [facility] CORONAVIRUS SARS COV 2 PCR (RESP) NEGATIVE NEGATIVE 02/19/2021 11:39 PM CDT [facility] Comment: THE SARS-CoV-2 TEST HAS BEEN AUTHORIZED BY THE FDA UNDER AN EUA FOR USE BY AUTHORIZED LABORATORIES. PERFORMED BY NUCLEIC ACID AMPLIFICATION PCR FIRST TEST UNKNOWN 02/19/2021 10:06 AM CDT [facility] EMPLOYED IN HEALTHCARE NO 02/19/2021 10:06 AM CDT [facility] SYMPTOMATIC DEFINED BY CDC UNKNOWN 02/19/2021 10:06 AM CDT [facility] HOSPITALIZATION STATUS UNKNOWN 02/19/2021 10:06 AM CDT [facility] PATIENT IN ICU UNKNOWN 02/19/2021 10:06 AM CDT [facility] RESIDENT OF [facility] NO 02/19/2021 10:06 AM CDT [facility] NASAL STRUCTURE / Unknown 02/19/2021 10:05 AM CDT Jorge Mcguire MD MICROBIOLOGY - GENERAL IVON MCGUIRE Final Result [facility] [address] [place] [address], [place] [phone] [facility] [address] [place] [id number], [place] [phone] documented in this encounter Visit Diagnoses Diagnosis History of colon polyps- Primary Personal history of colonic polyps Epigastric pain Abdominal pain, epigastric Gastroesophageal reflux disease, unspecified whether esophagitis present Schatzki's ring Congenital tracheoesophageal fistula, esophageal atresia and stenosis Hiatal hernia Diaphragmatic hernia without mention of obstruction or gangrene Weight loss Loss of weight Nausea and vomiting, unspecified vomiting type documented in this encounter Additional Health Concerns Infection Onset Date Last Indicated Resolved Time COVID-19 Rule Out 02/19/2021 02/19/2021 02/19/2021 11:40 PM CDT Assessment Noted Time PHQ-9 Depression Total Score: 6 10/25/19 21 3:31 PM CDT documented as of this encounter Care Teams Diver Assistant Relationship Specialty Start Date End Date Rojelio Wagner MD PCP - General INTERNAL MEDICINE 10/24/20 07/12/21 [place] [address] [facility]. [address] [place] [address] PCP - General FAMILY PRACTICE 07/13/21 Miki David MD [address] [place] [address] Consulting Physician OTOLARYNGOLOGY 01/15/21 documented as of this encounter
--- OUTSIDE RECORDS SUMMARY | 2025-02-28 16:55 | XMS_ITS | Encounter Summary ---
Author Organization [facility] Address [address] [place] [address] Phone Care Team Providers Care Rn Progressive Care Unit Name Role Phone Rojelio Wagner MD Primary Care Provider [phone] Encounter Details Date Type Department Care Team (Late st Contact Info) Description 03/01/2021 Telephone [facility] [address] [address] Suraj Resendez MD [address] [place] [phone] Social History Tobacco Use Types Packs/Day Years Used Date Smoking Tobacco: Every Day Cigarettes 0.5 45 Smokeless Tobacco: Never Comments:trying to quit Alcohol Use Standard Drinks/Week Comments Never 0 (1 standard drink = 0.6 oz pur e alcohol) AUDIT-C Answer Date Recorded Frequency of Alcohol Consumption Never 11/08/2018 Average Number of Drinks Not on file 019 Frequency of Binge Drinking Not on file 10/21 PHQ-2 Answer Date Recorded Total Score - Questions 1-9 0 08/0 10/2020 Sex and Gender Information Value Date Recorded Sex Assigned at Not on file Legal Sex Male 12:36 AM CDT Gender Identity Not on file Sexual Orientation Not on file documented as of this encounter Miscellaneous Notes * Telephone Encounter - Lexis Duff - 03/01/2021 2:05 PM CDT Images from the original note were not included. Suraj Resendez MD You 1 hour ago (12:59 PM) MW We can see if he comes in on 03/08 thanks Message text * Telephone Encounter - Lexis Duff - 03/01/2021 11:55 AM CDT WE HAVE BEEN TRYING TO GET THE PT SET UP WITH DR SAM'S OFFICE BUT THE PT WILL NOT RETURN CALLS TO US OR HIS OFFICE. WHAT WOULD YOU LIKE TO DO WITH THIS REFERRAL? documented in this encounter Plan of Treatment Not on file documented as of this encounter Visit Diagnoses Not on filedocumented in this encounter Additional Health Concerns Assessment Noted Time PHQ-9 Depression Total Score: 0 01/26/20 9:41 AM CDT documented as of this encounter Care Teams Rn Progressive Care Unit Relationship Specialty Start [place] [address] [place] [address] PCP - General General Surgery 01/10/21 documented as of this encounter
--- OUTSIDE RECORDS SUMMARY | 2025-02-28 16:55 | XMS_ITS | Encounter Summary ---
Author Organization [facility] Address [address] [place] [address] Phone Care Team Providers Care Hot Patcher Name Role Phone Rojelio Wagner MD Primary Care Provider [phone] Encounter Details Date Type Department Care Team (Late st Contact Info) Description 04/19/2021 Telephone [facility] [address] [address] Suraj Resendez MD [address] [place] [phone] Social History Tobacco Use Types Packs/Day [...] Date Recorded Total Score - Questions 1-9 1 03/24 Sex and Gender Information Value Date Recorded Sex Assigned at Not on file Legal Sex Male 12:36 AM CDT Gender Identity Not on file Sexual Orientation Not on file COVID-19 Exposure Response Date Recorded In the last month, have you been in contact with someone who was confirmed or suspected to have Coronavirus / COVID-19? No / Unsure 04/19/2021 11:13 AM CDT documented as of this encounter Miscellaneous Notes * Telephone Encounter - Lexis Duff - 04/19/2021 2:16 PM CDT PT IS SCHEDULED FOR CT SCAN 05/01/21 AT 9AM IN [place]. WORKING WITH TOREY DOMINGUEZ AT [facility] TO GET PT SCHEDULED WITH DR FLACO WELCH. SHE IS GOING TO BE CALLING ME AND PT HOPEFULLY TOMORROW BUT I WILL FOLLOW UP TO MAKE SURE. SPOKE TO TAMMIE RAMACHANDRAN AND PT IS SCHEDULED WITH DR SAM 04/26/21 AT 10AM. documented in this encounter Plan of Treatment Not on file documented as of this encounter Visit Diagnoses Not on filedocumented in this encounter Additional Health Concerns Assessment Noted Time PHQ-9 Depression Total Score: 1 04/19/20 21 11:24 AM CDT documented as of this encounter Care Teams Hot Patcher Relationship Specialty Start [place] [address] [facility] [address] [place] [address] PCP - General General Surgery 01/10/21 documented as of this encounter
--- OUTSIDE RECORDS SUMMARY | 2025-02-28 16:55 | XMS_ITS | Clinical Summary ---
Author Organization [facility] Address [facility] [place] [address] Care Team Providers Care Social Media Content Manager Name Role Phone Miki David MD Unavailable [phone] Evelyn Song MD Primary Care Provider [phone] Allergies Active Allergy Reactions Criticality Noted Date Comments Penicillins Swelling High 11/08/2018 Medications Cholecalciferol (VITAMIN D) 50 MCG (1999 UT) Tab Take 1 tablet (50 mcg total) by mouth daily. Active albuterol sulfate HFA 108 (90 Base) MCG/ACT inhalerIndication s:Chronic obstructive pulmonary disease, unspecified COPD type ([facility]) Inhale 2 puffs into the lungs every 6 (six) hours as needed for Wheezing or Shortness of breath. 8 g 5 10/08/19 23 Active melatonin 10 MG tablet Take 1 tablet (10 mg total) by mouth nightly as needed for Sleep. Active SYMBICORT 160-4.5 MCG/ACT inhalerIndication s:Chronic obstructive pulmonary disease, unspecified COPD type ([facility]) INHALE 2 PUFFS TWICE DAILY 30.6 g 1 08/03/19 25 Active ketoconazole (NIZORAL) 2 % shampooIndication s:Seborrheic dermatitis SHAMPOO TOPICALLY TWICE A WEEK 120 mL 08/20/19 25 Active pregabalin (LYRICA) 50 MG capsuleIndication s:Epigastric pain Take 1 capsule (50 mg total) by mouth 2 (two) times daily. 180 capsule 1 08/23/19 25 Active zolpidem (AMBIEN) 10 MG tabletIndications :Primary insomnia Take 1 tablet (10 mg total) by mouth nightly at bedtime. at bedtime 30 tablet 5 08/23/19 25 Active omeprazole (PRILOSEC) 40 MG capsuleIndication s:Epigastric pain,Gastroesopha geal reflux disease, unspecified whether esophagitis present Take 1 capsule (40 mg total) by mouth 2 (two) times a day. 60 capsule 2 11/13/19 25 Active ibuprofen (MOTRIN) 800 MG tablet Take 1 tablet (800 mg total) by mouth every 6 (six) hours as needed. 12/09/19 25 Active sucralfate (CARAFATE) 1 G tabletIndications :Gastroesophageal reflux disease without esophagitis Take 1 tablet (1 g total) by mouth 4 (four) times daily before meals and nightly. 40 tablet 12/15/19 25 Active mirtazapine (REMERON) 15 MG tabletIndications :Moderate episode of recurrent major depressive disorder (CMS/HCC) Take 1 tablet (15 mg total) by mouth nightly at bedtime. at bedtime 90 tablet 1 12/15/19 25 Active rimegepant (NURTEC) 75 MG disintegrating tabletIndications :Migraine with aura and without status migrainosus, not intractable Take 1 tablet (75 mg total) by mouth daily as needed for Migraine. Max of 1 tablet (75 mg) in 24 hours. 18 tablet 5 01/11/20 25 Active lisinopril (PRINIVIL) 20 MG tabletIndications :Primary hypertension Take 1 tablet (20 mg total) by mouth 2 (two) times a day. 180 tablet 3 02/15/20 25 026 Active atorvastatin (LIPITOR) 20 MG tablet Take 1 tablet (20 mg total) by mouth nightly at bedtime. 90 tablet 3 02/15/20 25 Active Slemp-3 Fatty Acids (FISH OIL OR) 025 Discontinued erenumab-aooe (AIMOVIG) 140 mg/mL injection (autoinjector)Ind ications:Migraine with aura and without status migrainosus, not intractable Inject 1 mL (140 mg total) into the skin every 30 (thirty) days. 3 mL 3 05/12/20 24 025 Discontinued methylPREDNISolon e, JOS, (MEDROL DOSEPAK) 4 MG tabletIndications :Migraine with aura and without status migrainosus, not intractable 6 TABLETS ON DAY ONE, 5 TABLETS DAY TWO, 4 TABLETS DAY THREE, 3 TABLETS DAY FOUR, 2 TABLETS DAY FIVE, AND 1 TABLET DAY SIX 1 each 12/30/19 25 025 Discontinued lisinopril (PRINIVIL) 30 MG tabletIndications :Primary hypertension Take 1 tablet (30 mg total) by mouth daily. 90 tablet 3 12/30/19 25 025 Discontinued Active Problems Problem Noted Date Diagnosed Date Gastroesophageal reflux dise ase, unspecified whether esophagitis present 11/12/2024 Schatzki's ring 11/12/2024 Hiatal hernia 11/12/2024 Weight loss 11/12/2024 Nausea and vomiting, unspecified vomiting type 0 11/12/2024 Essential hypertension 03/12/2024 Fatty liver disease, nonalcoholic 12/12/2023 Infrarenal abdominal aortic aneurysm (AAA) witho ut rupture 12/12/2023 Mixed hyperlipidemia 12/12/2023 Seborrheic dermatitis 01/08/2022 Chronic periumbilical pain 02/20/2021 Thyroid nodule 01/09/2021 Unexplained weight loss 12/08/2020 Adult BMI <19 kg/sq m 11/26/2020 Medication management 11/26/2020 Pulmonary nodules 11/10/2020 Overview (11/10/2020): Noted on CT scan from 11/09/2020. Repeat CT recommended every 6 months x 2 years for monitoring purposes. Primary insomnia 10/24/2020 COPD (chronic obstructive pu lmonary disease) ([facility]) 10/24/2020 Epigastric pain 09/12/2020 Migraine with aura and witho ut status migrainosus, not intractable 03/01/2015 Vitamin D deficiency 02/09/2013 Overview (10/24/2020): Vitamin D deficiency Resolved Problems Problem Noted Date Diagnosed Date Resolved Date Dysphagia 09/12/2020 10/24/2020 Overview (10/24/2020): Added automatically from request for surgery [id number] Cigarette nicotine dependenc e without complication 09/12/2020 02/02/2024 Encounters Date Type Department Care Team Description 02/23/2025 Telephone [facility] - [address], [address] [place] [address] Kodi Morocho MD Appointment Request 02/14/2025 11:15 AM CDT Office Visit [facility] [place] [address] Calixto Patton MD Hypertension (consult); Shortness Of Breath 02/14/2025 Telephone [facility] - [address], [address] [place] [phone] Kodi Morocho MD Question 02/14/2025 Travel 02/02/2025 Patient Outreach [facility] [address] [address] Vicki Scott, PharmD Consult 01/31/2025 Telephone [facility] [address] [address] Evelyn Song MD Referral 01/25/2025 Patient Outreach [facility] [address] [address] Ermias Dumas, [facility] Medication (Lisinopril 10mg Medication adherence review. /) 01/24/2025 Telephone [facility] [address] [address] Evelyn Song MD Blood Pressure 01/07/2025 Telephone [facility] [address] [phone] Evelyn Song MD Medication Problem 01/02/2025 Telephone [facility] [id number] [place] [phone] Evelyn Song MD Record Request 12/29/2024 3:40 PM CDT Office Visit [facility] [address] [phone] Evelyn Song MD ER F/U 12/29/2024 Travel 12/21/2024 Telephone [facility] [id number] [place] [phone] Evelyn Song MD Blood Pressure 12/19/2024 Scan [employer] INFO SRVCS Scanned, [facility] 12/14/2024 1:40 PM CDT Office Visit [facility] [address] [phone] Evelyn Song MD Follow Up; Stomach Pains (Pt c/o stomach pain, getting worse x a couple weeks. ) 12/14/2024 Telephone [facility] [address] [phone] Evelyn Song MD Follow Up Call 12/14/2024 Travel from Last 3 Months Family History Medical History Relation Comments Alcohol Abuse Brother Arthritis Mother Diabetes Mother Migraines Sister 1 Migraines Sister 3 Relation Status Comments Brother (Age 45) Father (Age 79) Maternal Grandfather Maternal Grandmother Mother (Age 89) Paternal Grandfather Paternal Grandmother Sister 1 Alive Sister 2 Alive Sister 3 Alive Social History Tobacco Use Types Packs/Day Years Used Date Smoking Tobacco: Every Day Cigarettes Smokeless Tobacco: Never Tobacco Cessation:Ready to Q uit: No; Counseling Given: Yes Comments: recently so he started smoking again Alcohol Use Standard Drinks/Week Comments Never 0 (1 standard drink = 0.6 oz pur e alcohol) AUDIT-C Answer Date Recorded Q1: How often do you have a drink containing alc ohol? Never 10/24/2020 Average Number of Drinks Not on file 021 Frequency of Binge Drinking Not on file 09/2020 PHQ-2 Answer Date Recorded Patient Health Questionnaire-2 Score 0 11/12/2024 Sex and Gender Information Value Date Recorded Sex Assigned at Male 08/19/2024 3:24 PM GENERATION MECHANIC HELPER Legal Sex Male 6:00 PM GENERATION MECHANIC HELPER Gender Identity Not on file Sexual Orientation Not on file Last Filed Vital Signs Vital Sign Reading Time Taken Comments Blood Pressure 132/84 02/14/2025 11:07 AM CDT Pulse 68 02/14/2025 11:07 AM CDT Temperature 36.9 C (98.4 F) 12/29/2024 3:38 PM CDT Respiratory Rate 16 12/29/2024 3:38 PM CDT Oxygen Saturation 98% 02/14/2025 11:07 AM CDT Inhaled Oxygen Concentration - - Weight 68.1 kg (150 lb 3.2 oz) 02/14/2025 11:07 AM CDT Height 188 cm (6' 2) 02/14/2025 11:07 AM CDT Body Mass Index 19.28 02/14/2025 11:07 AM CDT Plan of Treatment Upcoming Encounters Date Type Department Care Team (Late st Contact Info) Description 03/21/2025 2:00 PM CDT Office Visit [facility] Family & Internal Medicine - [place] [id number] [place] [phone] [place] [address] [facility] [place] [address] 03/22/2025 10:00 AM CDT Appointment [facility] [address] [place] [address] [place] [address] [facility]. [address] [place] [address] 06/06/2025 11:00 AM GENERATION MECHANIC HELPER Office Visit [facility] [place] [address] Calixto Patton MD Three [facility], [address] [place] [address] 06/20/2025 1:00 PM GENERATION MECHANIC HELPER Hospital Encounter [facility] [address] Kodi Morocho MD [address] [facility] [address] [place] [address] 06/20/2025 1:00 PM GENERATION MECHANIC HELPER - 06/20/2025 1:30 PM GENERATION MECHANIC HELPER Surgery [facility] [place] [address] Kodi Morocho MD [address] [address] EGD 06/30/2025 11:20 AM GENERATION MECHANIC HELPER Office Visit [facility] Family & Internal Medicine - [place] [phone] [place] [address] Evelyn Song MD [address] [place] [address]. [address] [place] [address] 07/06/2025 1:30 PM GENERATION MECHANIC HELPER Appointment [facility] Ultrasound [address] [place] [address] Dionisio Watts MD Three [facility]. [facility] [address] [place], [place] [address] Scheduled Procedures Name Priority Associated Diagnoses Date/Ti me EGD Epigastric pain Gastroesophageal reflux disease, unspecified whether esophagitis present Schatzki's ring Hiatal hernia Weight loss Nausea and vomiting, unspecified vomiting type 06/20/2025 1:00 PM GENERATION MECHANIC HELPER Health Maintenance Due Date Last Done Comments Hepatitis C 1972 DTaP, Tdap and Td Vaccines (1 - Tdap) 1973 Zoster Vaccines (1 of 2) 2004 RSV Immunization or 60+ Years (1 - Risk 60-74 years 1-dose series) 2014 Annual Medicare Wellness Visit 2019 COVID-19 Vaccine (1 - season) 2025 Colorectal Cancer Screening Colonoscopy (10 Years) 02/22/2026 02/22/2021, 02/22/2021, 05/12/2020 Pneumococcal Vaccine: 50+ Years (1 of 2 - PCV) 09/25/2027 Postponed from 1973 (Patient Refused) AAA SCREENING Completed 07/05/2024, 08/21, 03/13/2023, Additional history exists PHQ-2 (Physician [place]) Completed 11/12/2024 Meningococcal B Vaccine Aged Out No l onger eligible based on patient's age to complete this topic Meningococcal Vaccine Aged Out No lupe bucky eligible based on patient's age to complete this topic RSV Immunizations Under 20 Months Aged Out No longer eligible based on patient's age to complete this topic Goals Goal Patient Goal Type Associated Problems Recent Progress Patient-Stated? Author Autogenera maulik Goal Care Plan Autogenerated Problem No Sarah Schwab [facility] Procedures Procedure Name Priority Date/Time Associated Diagnosis Comments US AORTA Routine 07/05/2024 2:52 PM GENERATION MECHANIC HELPER Infrarenal abdominal aortic aneurysm (AAA) without rupture COLONOSCOPY Routine 02/22/2021 3:13 PM CDT from Last 3 Months or Most Recently Relevant to Health Maintenance Results * US AORTA (07/05/2024 2:52 PM GENERATION MECHANIC HELPER) Anatomical Region Laterality Modality Abdomen Ultrasound 07/06/2024 2:21 PM GENERATION MECHANIC HELPER Impressions 07/06/2024 2:24 PM GENERATION MECHANIC HELPER IMPRESSION: Increasing dilatation of the infrarenal abdominal aorta. This now measures 2.9 x 3.5 cm where on prior MRI of December 26, 2023 this measured 2.6 x 2.8 cm. Vascular surgery consultation recommended if not already performed. Ordered By: EVELYN SONG Interpreted By: Ventura Vidales MD, 07/06/2024 2:21 PM Narrative 07/06/2024 2:24 PM GENERATION MECHANIC HELPER [facility] [address] [place] [address] Procedure(s): US AORTA Date of service: 07/05/2024 2:11 PM Provided clinical information: 68 years, Male, follow up- infrarenal abdominal aortic aneurysm measuring 2.2 x 3.1 cm Procedure and materials: Grayscale and color Doppler images of the aorta are obtained transabdominally. Comparison studies: MRI of the abdomen December 26, 2023. Findings: Proximal aorta measures 2.2 cm. Mid aorta measures 1.9 cm maximally. Distal aorta measures 2.9 x 3.5 cm. This has increased from 2.4 x 2.9 cm in February 2023. Prior AP dimension is approximately 2.6 cm in December 2023 on the MRI examination. Transverse dimension is 2.8 cm. Right common iliac artery measures 1.1 cm while the left measures 1.1. Procedure Note Ventura Vidales MD - 07/06/2024 [facility] [address] [facility]. [place] [id number] Procedure(s): US AORTA Date of service: 07/05/2024 2:11 PM Provided clinical information: 68 years, Male, follow up- infrarenalabdominal aortic aneurysm measuring 2.2 x 3.1 cm Procedure and materials: Grayscale and color Doppler images of the aortaare obtained transabdominally. Comparison studies: MRI of the abdomen December 26, 2023. Findings: Proximal aorta measures 2.2 cm. Mid aorta measures 1.9 cm maximally.Distal aorta measures 2.9 x 3.5 cm. This has increased from 2.4 x 2.9 cmin February 2023. Prior AP dimension is approximately 2.6 cm in December 2023on the MRI examination. Transverse dimension is 2.8 cm. Right common iliac artery measures 1.1 cm while the left measures 1.1. IMPRESSION: Increasing dilatation of the infrarenal abdominal aorta. This now measures2.9 x 3.5 cm where on prior MRI of December 26, 2023 this measured 2.6 x 2.8cm. Vascular surgery consultation recommended if not already performed. Ordered By: EVELYN SONG Interpreted By: Ventura Vidales MD, 07/06/2024 2:21 PM Evelyn Song MD ULTRASOUND Final Result * Colonoscopy (02/22/2021 3:13 PM CDT) Althea Auguste MD - 02/22/2021 3:13 PM CDT Althea Mcguire MD 02/22/2021 3:51 PM ALTHEA MCGUIRE MD, FACG, FACP COLONOSCOPY 02/22/2021 INDICATION: Abdominal pain, constipation, weight loss, personal history of colon polyps. POST-OP: One tiny polyp removed. SEDATION: Per Anesthesia PREP: Good. Senior Sharepoint Architect: Dr. Mónica Quiroga With the patient in the left lateral decubitus position, the Olympus [id number] colonoscope was introduced into the rectum and advanced easily to the Terminal Ileum. Careful inspection of the mucosa was made upon insertion and withdrawal of the endoscope. FINDINGS: Terminal ileum: distal 5 cm normal. Cecum, Ascending colon, Transverse colon, Descending colon and Rectum including retroflexion normal. Sigmoid colon: 5 mm sessile polyp removed with cold biopsy forceps without bleed. No masses, AVMs, colitis or diverticulosis seen. No complications, blood loss or implants. ASSESSMENT AND PLAN: A. Abdominal pain, constipation, weight loss: - Unremarkable colonoscopy - No findings to explain patient's symptoms - Patient has had extensive evaluation; will likely arrange tertiary referral B. Personal history of colon polyps: - One polyp removed - If adenomatous repeat colonoscopy in five years, otherwise screening colonoscopy in 10 years. Thank you for allowing me to care for your patient. He will follow-up with my office in 2-4 weeks. Althea Mcguire M.D. Cc: Dr. Pretty Wagner Althea Mcguire MD GI PROCEDURE ORDERABLES Fin al Result from Last 3 Months or Most Recently Relevant to Health Maintenance Additional Health Concerns Active Problems Noted Date Diagnosed Date Autogenerated Problem 11/12/2024 Insurance [employer] Care Teams Social Media Content Manager Relationship Specialty [place] [address] [place] [address] PCP - General FAMILY PRACTICE 07/13/21 Miki David MD [address] [place] [address] Consulting Physician OTOLARYNGOLOGY 01/15/21
[2025-02-28 17:14] LABS: Hematocrit 43.2 % (37.0-46.0); Hemoglobin 13.8 g/dL (12.4-15.3); Mean Corpuscular HGB Conc 31.9 g/dL (32-36); Mean Corpuscular Hemoglobin 29.2 pg (27.0-31.0); Mean Corpuscular Volume 91.5 fL (78.0-102.0); Platelet Count Result 356 K/mm3 (150-420); Red Blood Count 4.72 M/mm3 (4.70-6.10); White Blood Count 9.8 K/mm3 (4.8-10.8)
[2025-02-28 17:23] LABS: Add Urine Microscopic? NO; Appearance Urine Clear (Clear); Glucose Urine UA Negative (Negative); Leukocyte Esterase Ur Negative (Negative); Nitrate Urine Negative (Negative); Specific Grav Ur 1.015 (1.010-1.020)
[2025-02-28 17:27] LABS: Alanine Aminotransferase 12 U/L (6-50); Albumin Level 4.5 g/dL (3.5-5.1); Alkaline Phosphatase 97 U/L (38-126); Amylase 47 U/L (30-110); Anion Gap 10 mmol/L (4-12); Aspartate Amino Transferase 18 U/L (17-59); Bilirubin,Total 0.5 mg/dL (0.2-1.3); Blood Urea Nitrogen 15 mg/dL (9-20); Calcium 9.9 mg/dL (8.4-10.2); Carbon Dioxide 27 mmol/L (22-30); Chloride 103 mmol/L (98-107); Estimated Glomerular Filt Rate > 60; Glucose 98 mg/dL (65-110); Lipase 47 U/L (23-300); Osmolality Calculated 290 mOsm/kg (285-295); Potassium 4.3 mmol/L (3.4-5.0); Sodium 140 mmol/L (137-145); Total Protein 7.7 g/dL (6.3-8.2)
[2025-02-28 17:44] LABS: Free T3 4.05 pg/mL (2.18-3.98); Free T4 Free Thyroxine 1.41 ng/dL (0.78-2.19)
[2025-02-28 17:58] LABS: Prostate Specific Antigen 3.7 ng/mL (< OR = 4.0); Thyroid Stimulating Hormone 1.540 uIU/mL (0.465-4.680)
== END 2025-02-28 16:51 | disposition home or self-care (01) ==
PROVIDERS: Internal Medicine; PCP Internal Medicine; Visit Provider Internal Medicine
DX: R10.9 Unspecified abdominal pain (principal); R63.4 Abnormal weight loss; R97.20 Elevated prostate specific antigen [PSA]; I10 Essential (primary) hypertension; J44.9 Chronic obstructive pulmonary disease, unspecified
CPT/HCPCS: 36415; 71046; 80053; 81003; 82150; 83690; 84153; 84439; 84443; 84481; 85027